=== PATIENT | female | born 1955 | race Caucasian/White ===

== ENCOUNTER 2018-07-01 03:32 | Inpatient (IN) ==
[2018-07-01] MEDS ORDERED: Gadolinium Contrast Agent (WT Based) IV PRN (06:48)
[2018-07-01] MEDS ORDERED: Naloxone 0.4 MG/ML INJ IVP PRN (06:55)
[2018-07-01] MEDS ORDERED: Acetaminophen 325 MG TABLET PO PRN (06:55)
--- NOTE | 2018-07-01 07:11 | Internal Med History&Physical ---
Date of Encounter: 07/01/18 Time of Encounter: 06:57 Internal Medicine - H&P: HPI Chief complaint: Lower extremity numbness/weakness History of present illness: Ms. Buchanan is a 63 year old female with past medical history of hypertension, osteoarthritis, hyperlipidemia, chronic back pain and spinal stenosis who initially presented to [facility] due to low back pain and right hip pain. Patient was subsequent to transferred to [place] for further evaluation of lolita ateral lower extremity weakness and numbness. According to the patient she has been having worsening back pain from her baseline over the weekend. She notes increased soreness in her lower extremities around the calves. Patient went to see a paint trimmer pipe bowls on Thursday who she states brushed her off and did not take her seriously. Patient returned home and shortly thereafter states that she could no longer move her legs and had to crawl to the bathroom. It was at this point that her called EMS to bring her in. She denies any loss of bowel or bladder control. While at [facility] patient received 10 mg of dexamethasone and pain management. Patient reports improved strength in her lower extremitiesthereafter. CT scan of the spine was also performed which showed no acute fracture; multilevel degenerative changes in lumbar spine with spinal stenosis and neural foraminal stenosis with the most severe finding at the level of L4-L5. As stated above patient has a history of chronic pain for which she has an established neurosurgeon. Per report, she is not a surgical candidate due to her comorbidities. Per reports patient had a recent MRI last month the results of which we do not have access to. At baseline patient ambulates with a walker. 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) Psychiatric history: anxiety, depression - Past Surgical History Surgical History: Additional surgical history: carpal tunnel sx - Social History Smoking Status: Current every day smoker Packs per day: 0.5 Smokeless Tobacco Status: No Alcohol use: heavy Drug use: marijuana - Family History Mother Adopted: Yes Internal Medicine - H&P: Meds Atorvastatin [Lipitor] 40 mg PO HS 07/01/18 [History] DULoxetine [Cymbalta] 30 mg PO DAILY 07/01/18 [History] Duloxetine HCl [Cymbalta] 60 mg PO DAILY 07/01/18 [History] Gabapentin [Neurontin] 600 mg PO TID 07/01/18 [History] Losartan Potassium [Cozaar] 50 mg PO DAILY 07/01/18 [History] Meloxicam 15 mg PO DAILY 07/01/18 [History] OxyCODONE/APAP 7.5/325 [Percocet 7.5/325 MG] 1 each PO Q8HR PRN 07/01/18 [History] Oxybutynin Chloride [Ditropan Xl] 5 mg PO DAILY 07/01/18 [History] Trazodone HCl 200 mg PO HS 07/01/18 [History] Allergy/AdvReac Type Severity Reaction Status Date / Time atenolol Allergy Cough Verified 07/01/18 06:43 All Systems PM: A 10-system review of systems was performed and is negative for pertinent findings except as documented above in the HPI. - Constitutional Constitutional: no chills, no fever(s), no night sweats - EENT Eyes: no change in vision, no discharge, no pain, no photophobia Ears: no ear discharge, no ear pain, no tinnitus Nose, mouth and throat: no dysphagia, no nasal discharge, no neck pain, no sore throat - Cardiovascular Cardiovascular ROS IM: no chest pain, no diaphoresis, no dyspnea, no lightheadedness, no palpitations, no syncope - Respiratory Respiratory: no cough, no dyspnea, no wheezing, no excessive phlegm production - Gastrointestinal Gastrointestinal: no abdominal pain, no diarrhea, no hematemesis, no hematochezia, no melena, no nausea, no vomiting - Genitourinary Genitourinary: no change in urinary stream, no dysuria, no flank pain, no hematuria - Musculoskeletal Musculoskeletal ROS IM: no numbness, no tingling - Integumentary Integumentary IM: no rash, no unusual bruising - Neurological Neurological ROS: no confusion, no convulsions, no focal weakness, no numbness, no tingling, no tremor(s) - Hematologic/Lymphatic Hematologic/Lymphatic: no easy bruising - Constitutional Vitals: Temp Pulse Resp BP Pulse Ox 99.1 F 61 15 172/74 93 07/01/18 06:42 07/01/18 06:42 07/01/18 06:42 07/01/18 06:42 07/01/18 06:42 Exam: General: Alert and oriented lying in bed in no acute distress Skin:Normal color, no rash, no lesions. HEENT:EOM, pupils equal, round and reactive. Cardiovascular:Normal S1 & S2, no rubs, murmurs or gallops. No JVD. Pulse regular. Lungs:Normal breath sounds, no wheezes or crackles. Abdomen:Soft, non-tender, no rigidity. Extremities:No deformity, no edema or tenderness, no joint swelling or clubbing. Neurological:Normal cognition. Cranial nerves II through XII intact. Muscle strength in the upper extremities 5 out of 5. Muscle strength in lower extremities 4 out of 5 bilaterally. Patient reports diminished sensation to light palpation bilaterally. Pulses:Carotid and radial pulses normal +2. Rest of the physical exam is non contributory Internal Med - H&P Results - Labs CBC & Chem 7: 07/01/18 07:06 07/01/18 07:06 - Assessment and plan (1) Bilateral leg weakness Current Visit: Yes Status: Acute Assessment and plan: Bilateral lower extremity weakness with reported inability to move her legs in the setting of history of spinal stenosis and chronic back pain. CT scan at [facility] shows mild to moderate to severe spinal stenosis involving the lumbar spine. Symptoms seem to have improved after receiving Decadron and pain medication. No evidence of cauda equina syndrome. We will obtain MRI. Neurology consult (2) Spinal stenosis Current Visit: Yes Status: Acute Assessment and plan: History of spinal stenosis. CT scan of the spine at [facility] showed multilevel degenerative changes in the lumbar spine. Mild spinal canal stenosis was seen at a level of L2-L3, moderate at L3-L4, moderate to severe at L4-L5, mild to moderate at L5-S1. Multilevel neural foraminal stenosis greatest in severity on the right at L2-L3 and L1-L2, and bilaterally at L5-S1 with there is some moderate to severe neural foraminal stenosis. Patient had recent MRI of the spine approximately one month ago per medical records. Patient states it was done at [facility]. Unfortunately we do not have access to that information. As noted above, we will obtain MRI for further evaluation. Pain management Qualifiers: Spinal region: lumbar Neurogenic claudication status: without neurogenic claudication Qualified Code(s): M48.061 - Spinal stenosis, lumbar region without neurogenic claudication (3) Hypertension Current Visit: Yes Status: Acute Assessment and plan: Resume home antihypertensives Qualifiers: Hypertension type: unspecified Qualified Code(s): I10 - Essential (primary) hypertension (4) Hyperlipidemia Current Visit: Yes Status: Acute Assessment and plan: Resume home statin Qualifiers: Hyperlipidemia type: unspecified Qualified Code(s): E78.5 - Hyperlipidemia, unspecified (5) DVT prophylaxis Current Visit: Yes Status: Acute - Time Spent With Patient Total time spent is greater than 50% in coordination of care (as documented) at patient's floor/unit and/or counseling patient:
[2018-07-01 07:44] LABS: Hematocrit 38.3 % (35.3-44.9); Hemoglobin 13.3 g/dL (11.5-15.4); Mean Corpuscular HGB Conc 34.7 g/dL (31.6-35.5); Mean Corpuscular Hemoglobin 31.1 pg (28.0-33.3); Mean Corpuscular Volume 89.5 fL (83.0-100.0); Mean Platelet Volume 10.1 fL (9.4-12.4); Platelet Count 258 K/mcL (140-400); Red Blood Count 4.28 M/mcL (3.82-4.97); Red Cell Distribution Width 12.2 % (11.5-14.5)
[2018-07-01 08:02] LABS: Alanine Aminotransferase 13 Units/L (7-52); Albumin 4.4 g/dL (3.5-5.7); Albumin/Globulin Ratio 1.6 (1.1-2.2); Alkaline Phosphatase 60 Units/L (34-104); Aspartate Amino Transferase 16 Units/L (13-39); BUN/Creatinine Ratio 22 (6-26); Bilirubin,Total 0.5 mg/dL (0.3-1.0); Blood Urea Nitrogen 12 mg/dL (8-23); Calcium 9.7 mg/dL (8.6-10.3); Carbon Dioxide 24 mEq/L (23-29); Chloride 105 mEq/L (98-107); Globulin 2.7 g/dL (2.4-3.5); Glucose 137 mg/dL (70-105); Osmolality,Calculated 284 (280-300); Potassium 3.7 mEq/L (3.5-5.1); Sodium 136 mEq/L (136-145); Total Protein 7.1 g/dL (6.4-8.9); eGFR For Non-African Americans > 60 (> 60)
[2018-07-01 08:05] LABS: Phosphorous 3.6 mg/dL (2.7-4.5)
[2018-07-01 08:19] LABS: Thyroid Stimulating Hormone 0.635 mcIU/mL (0.340-5.600)
[2018-07-01] MEDS: traMADol 50 MG TABLET PO PRN (10:23)
--- NOTE | 2018-07-01 10:48 | Neurology - Consult Note ---
<Farshad Owenuma - Last Filed: 07/01/18 10:59> Date of Encounter: 07/01/18 Time of Encounter: 10:43 Assessment and Plan (1) Bilateral leg weakness Current Visit: Yes Status: Acute Neurological exam nonfocal, nonlateralizing except for brisk lower extremity reflexes. ct spine did show signs of canal stenosis (report only available not images) Patient also did not participate with full effort during neurological exam. When testing for plantar reflexes patient quickly withdrew both lower extremities at an alarming speed which differed from her LE strength testing where she could barely raise her legs. There was no evidence of flaccid or spastic paralysis. Lumbar spine and thoracic spine MRI have been ordered by primary team. We will await those results. Patient has been given 10 mg of dexamethasone at [facility]. zanaflex prn for spasticity (2) Spinal stenosis Current Visit: Yes Status: Acute plan as above. Qualifiers: Spinal region: lumbar Neurogenic claudication status: without neurogenic claudication Qualified Code(s): M48.061 - Spinal stenosis, lumbar region wit hout neurogenic claudication History of Present Illness Chief complaint: Lower extremity weakness HPI: Ms. Buchanan is a 63 year old female presented with chief complaint of lower extremity numbness/weakness which patient reported started 2 weeks ago. When asked in detail patient reports she has had soreness in bilateral lower ext remity as well as in her lower back radiating down to her right buttock. She denies any loss of sensation. She does report difficulty walking. She denies slurred speech, upper extremity weakness, facial drooping, changes in vision or hearing, difficulty swallowing. Patient has history of stroke lumbar spinal stenosis diagnosed in 2015 and is followed by a neurosurgeon who has recommended to her conservative treatment. However these symptoms are new for her. Patient was a transfer from [facility] and received 10 mg of dexamethasone. She underwent CT scan of her spine which showed multilevel degenerative changes in the lumbar spine with spinal stenosis and neural foraminal stenosis with the most severe findings at L4, L5. There was no acute fracture. Patient denies any trauma, fall. Before this symptom started patient reports she ambulated independently to me however to the admitting physician Patient reports she walks with a walker. 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) Psychiatric history: anxiety, depression - Past Surgical History Surgical History: Additional surgical history: carpal tunnel sx - Social History Smoking Status: Current every day smoker Packs per day: 0.5 Smokeless Tobacco Status: No Alcohol use: heavy Drug use: marijuana - Family History Mother Adopted: Yes Medications and Allergies Atorvastatin [Lipitor] 40 mg PO HS 07/01/18 [History] DULoxetine [Cymbalta] 30 mg PO DAILY 07/01/18 [History] Duloxetine HCl [Cymbalta] 60 mg PO DAILY 07/01/18 [History] Gabapentin [Neurontin] 600 mg PO TID 07/01/18 [History] Losartan Potassium [Cozaar] 50 mg PO DAILY 07/01/18 [History] Meloxicam 15 mg PO DAILY 07/01/18 [History] OxyCODONE/APAP 7.5/325 [Percocet 7.5/325 MG] 1 each PO Q8HR PRN 07/01/18 [History] Oxybutynin Chloride [Ditropan Xl] 5 mg PO DAILY 07/01/18 [History] Trazodone HCl 200 mg PO HS 07/01/18 [History] Allergy/AdvReac Type Severity Reaction Status Date / Time atenolol Allergy Cough Verified 07/01/18 06:43 All Systems: The remainder of the systems were reviewed and are negative Review of Systems: Constitutional: Denies fever, chills HEENT: Denies headache, trauma, blurry vision, eye discharge, ear pain, ear discharge neck pain, sore throat, rhinorrhea Heart: Denies chest pain palpitations, LE edema Lungs: Denies shortness of breath cough Abdomen: Denies abdominal pain nausea vomiting diarrhea MSK: Denies back pain, falls, joint pain Kidney: Denies dysuria, hematuria Skin: Denies rash, ulcers Neuro: Reports bilateral lower extremity weakness and difficulty ambulating. Psych: denies axniety, depression Physical Examination - Vital Signs Vital Signs: Initial Vital Signs Temp Pulse Resp BP Pulse Ox 99.1 F 61 15 172/74 93 07/01/18 06:42 07/01/18 06:42 07/01/18 06:42 07/01/18 06:42 07/01/18 06:42 - Exam Exam: General: pleasant, without distress HEENT: Head atraumatic, normocephalic, EOMI, PERRL, absent ear discharge or t rauma, Moist Mucous Membranes, uvula midline Neck: nontender to palpation, absent lymphadenopathy, Cardiovascualr: Regular rate and rhythm with no murmur, absent gallops or rubs, absent pedal edema, radial pulses 2 out of 4 Lungs: Clear to auscultation bilaterally, not in respiratory distress Abdomen: Soft nontender, nondistended positive bowel sounds, absent hepatomegaly Skin: warm and dry, absent rash, absent open wounds and nodules MSK: absent clubbing, cyanosis, joints without swelling Psych: Poor insight, calm - Constitutional General appearance: comfortable - Neurologic Sensorimotor examination: intact Motor examination - right side: 4/5: deltoids, biceps, triceps, wrist flexion, wrist extension, hat cutter, hip flexors, tibialis Anterior, quadriceps, toe extension (EHL), plantarflexion Motor examination - left side: 4/5: deltoids, biceps, triceps, wrist flexion, wrist extension, hip flexors, hat cutter, quadriceps, tibialis Anterior, toe extension (EHL), plantarflexion Detailed sensory examination: intact, light touch, pain Reflex and gait examination: other (Gait is not tested as patient is unable to sit up independently.) Reflexes: Biceps: 3+, Triceps: 3+, Brachioradialis: 3+, Patella: 3+, Achilles: 3+ Mental Status Examination: awake, alert, oriented to person, oriented to place, oriented to time, follows commands appropriately, answers questions appropriately, no agnosia, no aphasia, no aproxia Cranial nerve examination: PERRL, EOMI, visual dent intact, sensory to face intact, mastication intact, no facial asymmetry is present, no dysarthria, hearing is intact symmetrically, soft palate elevates bilaterally upon phonation, flexes SCM and trapezius muscles symmetrically with full power, tongue protrudes midline, no atrophy or facial fasiculations present Cerebellar examination: no dysmetria, performs finger to nose and heel to pemberton symmetrically without ataxia, no truncal ataxia, no difficulty with rapid alternating movements Results - Laboratory Findings CBC and BMP: 07/01/18 07:06 07/01/18 07:06 Abnormal lab findings: Abnormal lab results Creatinine 0.55 mg/dL (0.60-1.20) L 07/01/18 07:06 Glucose 137 mg/dL (70-105) H 07/01/18 07:06 Creatine Kinase 340 Units/L (30-223) H 07/01/18 07:06 Consult Discharge Plan - Plan Referrals: Stacie Michaud, HEALTHCARE CORPORATE ACCOUNT DIRECTOR [Primary Care Provider] - <Isabel Robin I - Last Filed: 07/01/18 16:53> Assessment and Plan (1) Bilateral leg weakness Current Visit: Yes Status: Acute Pt was seen and examined, my medical decision was reviewed with the Resident Physician, I agree with the documented findings, disposition and treatment plas as described except to the extent set forth below Patient who has an history of chronic back problem and known spinal stenosis had been following up with pain management and had seen in the spine surgeon as an outpatient was told that she was not a surgical candidate admitted with these of weakness of lower extremity on examination, Alert awake and oriented care nerves are all intact motor examination she did have a decrease strength in lower extremities but there is significant giveaway weakness she is able to move her legs spontaneously as well as to the pain Reflexes are brisk and lower extremities as compared to the upper extremities Considering her overall symptoms suspect that her lower extremity weakness is likely related to her underlying known history of lumbar degenerative changes she is a scheduled for an MRI of the lumbar spine and thoracic spine will follow the results with you Depending on the result of this is a critical stenosis perhaps she may need consult with the spine surgeon Otherwise may give her trial of steroids and at same time continue her on pain medication She may benefit from physical therapy evaluation Isabel Robin MD History of Present Illness HPI: Ms. Buchanan is a 63 year old female All Systems: The remainder of the systems were reviewed and are negative Physical Examination - Vital Signs Vital Signs: Initial Vital Signs Temp Pulse Resp BP Pulse Ox 99.1 F 61 15 172/74 93 07/01/18 06:42 07/01/18 06:42 07/01/18 06:42 07/01/18 06:42 07/01/18 06:42 Results - Laboratory Findings CBC and BMP: 07/01/18 07:06 07/01/18 07:06 Abnormal lab findings: Abnormal lab results Creatinine 0.55 mg/dL (0.60-1.20) L 07/01/18 07:06 Glucose 137 mg/dL (70-105) H 07/01/18 07:06 Creatine Kinase 340 Units/L (30-223) H 07/01/18 07:06
[2018-07-01] MEDS ORDERED: tiZANidine 4 MG TABLET PO PRN (10:59)
[2018-07-01] MEDS: *HR* Heparin 5,000 UNIT/ML VIAL SQ SCH ×2 (16:52→20:55)
--- NOTE | 2018-07-01 16:53 | Event Note ---
Date of Encounter: 07/01/18 Time of Encounter: 10:00 Patient was seen and examined earlier this a.m. by hospitalist-she is currently alert oriented following simple commands. Denies any pain or discomfort at this time. She does complain of lower extremity weakness complaints of lower back pain when elevating right leg. 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 Disc and osteophytes as well as facet and ligamentum flavum hypertrophy contribute to further stenosis of the thecal sac and narrowing of the neural foramina as discussed above. The worst level is L4-5. Thoracic spine IMPRESSION: 1. Unremarkable MRI of the thoracic spine. 2. Degenerative disc disease is noted at C5-C6, and C6-C7, incompletely imaged. There is at least mild-moderate central spinal canal narrowing at C6-C7. Dedicated MRI of the cervical spine could be obtained for further evaluation if clinically indicated. Neurology consultation awaiting further recommendations
[2018-07-01] MEDS: traZODone 50 MG TABLET PO SCH (20:53)
[2018-07-02] MEDS: *HR* Heparin 5,000 UNIT/ML VIAL SQ SCH ×3 (06:54→21:06)
[2018-07-02] MEDS: traMADol 50 MG TABLET PO PRN (09:02)
--- NOTE | 2018-07-02 10:16 | Neurology Progress Note ---
<Farshad Owen - Last Filed: 07/02/18 10:14> Date of Encounter: 07/02/18 Time of Encounter: 10:14 Assessment and Plan (1) Bilateral leg weakness Current Visit: Yes Status: Acute Neurological exam nonfocal, nonlateralizing except for brisk lower extremity reflexes. ct spine did show signs of canal stenosis (report only available not images) MRI lumbar spine shows bony spinal canal is congenitally small, narrowing of the neural foramina worst at L4's-5 Since patient was witnessed to be able to walk independently back into bed after being transferred to the bathroom, she seems to have enough strength in her lower extremities. Patient may follow-up with her neuro surgeon outpatient for further evaluation of her lumbar stenosis. (2) Spinal stenosis Current Visit: Yes Status: Acute Qualifiers: Spinal region: lumbar Neurogenic claudication status: without neurogenic claudication Qualified Code(s): M48.061 - Spinal stenosis, lumbar region without neurogenic claudication (3) Hypertension Current Visit: Yes Status: Acute Qualifiers: Hypertension type: unspecified Qualified Code(s): I10 - Essential (primary) hypertension (4) Hyperlipidemia Current Visit: Yes Status: Acute Qualifiers: Hyperlipidemia type: unspecified Qualified Code(s): E78.5 - Hyperlipidemia, unspecified (5) DVT prophylaxis Current Visit: Yes Status: Acute Subjective Principal diagnosis: LE weakness Interval history: Patient reports she continues to have lower extremity weakness. However nurse practitioner indicates that patient was seen to walk independently back to her bed and after being transferred to the bathroom. She continues to move her extremities very quickly when pain is applied during neurological exam. Objective - Constitutional Vitals: Temp Pulse Resp BP Pulse Ox 98.7 F 77 17 177/79 94 07/02/18 07:29 07/02/18 07:29 07/02/18 07:29 07/02/18 07:29 07/02/18 07:29 - Neurological Exam Sensorimotor examination: Present: intact Motor examination - right side: 4/5: deltoids, biceps, triceps, wrist flexion, wrist extension, cloth finishing range back tender, hip flexors, tibialis Anterior, quadriceps, toe extension (EHL), plantarflexion Motor examination - left side: 4/5: deltoids, biceps, triceps, wrist flexion, wrist extension, hip flexors, cloth finishing range back tender, quadriceps, tibialis Anterior, toe extension (EHL), plantarflexion Sensation intact: Present: intact, light touch, pain Reflex and gait examination: other (Gait is not tested as patient is unable to sit up independently.) Reflexes: Biceps: 2+, Triceps: 2+, Brachioradialis: 2+, Patella: 3+, Achilles: 3+ Mental Status Examination: Present: awake, alert, oriented to person, oriented to place, oriented to time, follows commands appropriately, answers questions appropriately, no agnosia, no aphasia, no aproxia Cranial nerve examination: Present: PERRL, EOMI, visual dent intact, sensory to face intact, mastication intact, no facial asymmetry is present, no dysarthria, hearing is intact symmetrically, soft palate elevates bilaterally upon phonation, flexes SCM and trapezius muscles symmetrically with full power, tongue protrudes midline, no atrophy or facial fasiculations present Cerebellar examination: Present: no dysmetria, performs finger to nose and heel to pemberton symmetrically without ataxia, no truncal ataxia, no difficulty with rapid alternating movements Results - Laboratory Findings CBC and BMP: 07/01/18 07:06 07/01/18 07:06 Abnormal lab findings: Abnormal lab results Creatinine 0.55 mg/dL (0.60-1.20) L 07/01/18 07:06 Glucose 137 mg/dL (70-105) H 07/01/18 07:06 Creatine Kinase 340 Units/L (30-223) H 07/01/18 07:06 Consult Discharge Plan - Plan Additional Instructions: Call [facility] when you get home to have walker and Bedside Commode delivered. The phone number is #[phone]. Referrals: Stacie Michaud CONGRESSIONAL ASSISTANT [Primary Care Provider] - <Yg Glass - Last Filed: 07/02/18 18:31> Time of Encounter: 18:24 Assessment and Plan (1) Bilateral leg weakness Current Visit: Yes Status: Acute Patient's neurologic examination finds a lyman difference in strength of the upper extremities compared to the lower extremities. She also has brisk lower extremity reflexes. The thoracic MRI did not reveal an explanation for this. She also does not have a spinal sensory level. The MRI of the lumbar spine however shows severe lumbar spinal stenosis at the L4-L5 level. I believe this is the reason that is responsible for her weakness of the lower extremities. I will however try to reconcile the hyperrflexia and obtain an MRI of the cervical spine. I did speak to our spine surgeon Dr. Carlos villeda and request that he see the patient tomorrow. I am not convinced of Guillain-Donaldson or transverse myelitis at this time. Subjective Interval history: Chart was reviewed, patient was seen and examined. Case was discussed with Dr. Owen. Patient today continues to have bilateral lower extremity weakness. She states that the weakness (progressing about 2 weeks or so ago. She has a known history of significant lumbar spinal stenosis. She denies bowel incontinence but is having urinary urgency more frequently. She feels that she is about the same now as she was yesterday. Objective - Constitutional Vitals: Temp Pulse Resp BP Pulse Ox 97.9 F 71 17 165/77 96 07/02/18 15:06 07/02/18 15:06 07/02/18 15:06 07/02/18 15:06 07/02/18 15:06 - Neurological Exam Motor examination - right side: 3/5: tibialis Anterior, toe extension (EHL), plantarflexion, 4/5: hip flexors, quadriceps, 5/5: deltoids, biceps, triceps, cloth finishing range back tender Motor examination - left side: 3/5: tibialis Anterior, toe extension (EHL), plantarflexion, 4/5: quadriceps, 5/5: deltoids, biceps, triceps, cloth finishing range back tender Sensation intact: Present: other (No spinal level is present. No sensory gradient is present.) Reflex and gait examination: other Reflexes: Biceps: 2+ (Symmetrically), Triceps: 2+ (Symmetrically), Brachioradialis: 2+ (Symmetrically), Patella: 3+ (Symmetrically), Achilles: 3+ (Symmetrically) Results - Laboratory Findings CBC and BMP: 07/01/18 07:06 07/01/18 07:06 Abnormal lab findings: Abnormal lab results Creatinine 0.55 mg/dL (0.60-1.20) L 07/01/18 07:06 Glucose 137 mg/dL (70-105) H 07/01/18 07:06 Creatine Kinase 340 Units/L (30-223) H 07/01/18 07:06
[2018-07-02] MEDS: *HR* OxyCODONE Immed Rel 5 MG TABLET PO PRN (12:18)
[2018-07-02] MEDS ORDERED: *HR* LORazepam 2 MG/ML VIAL IVP PRN ×3 (17:25)
--- NOTE | 2018-07-02 20:12 | Internal Med Progress Note ---
Hospitalist Progress Note - Encounter Date of Encounter: 07/02/18 Time of Encounter: 11:00 - Subjective Interval History: Patient seen and examined at bedside earlier this morning. I was notified per nursing staff that patient has a history of alcohol use. Patient does admit to daily drinking for the past 40 years. She states she drinks approximately 4-6 beers daily and her last drink occurred on Thursday. Denies any anxiety or tremors at this time. Advised patient we will initiate CIWA monitoring awaiting neurology recommendations. Patient verbalizes understanding of treatment plan - Exam Vitals: Temp Pulse Resp BP Pulse Ox 98.3 F 56 16 199/73 97 07/02/18 19:13 07/02/18 19:13 07/02/18 19:13 07/02/18 19:13 07/02/18 19:13 Exam: General: Alert and oriented lying in bed in no acute distress Skin:Normal color, no rash, no lesions. HEENT:EOM, pupils equal, round and reactive. Cardiovascular:Normal S1 & S2, no rubs, murmurs or gallops. No JVD. Pulse regula r. Lungs:Normal breath sounds, no wheezes or crackles. Abdomen:Soft, non-tender, no rigidity. Extremities:No deformity, no edema or tenderness, no joint swelling or clubbing. Neurological:Normal cognition. Cranial nerves II through XII intact. Muscle strength in the upper extremities 5 out of 5. Muscle strength in lower extremities 4 out of 5 bilaterally. Patient reports diminished sensation to light palpation bilaterally. Pulses:Carotid and radial pulses normal +2. Rest of the physical exam is non contributory - Assessment and Plan (1) Bilateral leg weakness Current Visit: Yes Status: Acute Assessment and Plan: Bilateral lower extremity weakness with reported inability to move her legs in the setting of history of spinal stenosis and chronic back pain. CT scan at [facility] shows mild to moderate to severe spinal stenosis involving the lumbar spine. Symptoms seem to have improved after receiving Decadron and pain medication. No evidence of cauda equina syndrome. We will obtain MRI. Neurology consult 07/02 Patient continues to experience lower extremity weakness 4/5 strength. Nursing staff does report patient having some difficulty ambulating to the bathroom. MRI of lumbar spine does show severe spinal stenosis at L4-L5 level. I did discuss or review this with Dr. Glass. We will obtain MRI of cervical spine. I will consult Dr. Carlos Glass did speak to Dr. Gonzalez concerning this case (2) Spinal stenosis Current Visit: Yes Status: Acute Assessment and Plan: History of spinal stenosis. CT scan of the spine at [facility] showed multilevel deg enerative changes in the lumbar spine. Mild spinal canal stenosis was seen at a level of L2-L3, moderate at L3-L4, moderate to severe at L4-L5, mild to moderate at L5-S1. Multilevel neural foraminal stenosis greatest in severity on the right at L2-L3 and L1-L2, and bilaterally at L5-S1 with there is some moderate to severe neural foraminal stenosis. Patient had recent MRI of the spine approximately one month ago per medical records. Patient states it was done at [place]. Unfortunately we do not have access to that information. As noted above, we will obtain MRI for further evaluation. Pain management 07/02 MRI of lumbar spine does show severe spinal stenosis at L4-L5 level. I did rev iew this with Dr. Glass we did consult Dr. Gonzalez he will see the patient in the a.m. (3) Hypertension Current Visit: Yes Status: Acute Assessment and Plan: Resume home antihypertensives-hydralazine as needed for systolic greater than 180 (4) Hyperlipidemia Current Visit: Yes Status: Acute Assessment and Plan: Resume home statin (5) DVT prophylaxis Current Visit: Yes Status: Acute Assessment and Plan: Heparin subcutaneous (6) Alcohol abuse Current Visit: Yes Status: Acute Assessment and Plan: Patient states that she drinks approximately 4-6 beers daily for the past 40 years. Her last drink was on Thursday. No signs of tremors or withdrawals at this time. Will initiate CIWA- - Time Spent with Patient Total time spent is greater than 50% in coordination of care (as documented) at patient's floor/unit and/or counseling patient: Internal Medicine: Result - Labs CBC & Chem 7: 07/01/18 07:06 07/01/18 07:06 - Impressions Impressions Lumbar Spine MRI 07/01/18 06:48 IMPRESSION: The bony spinal canal overall is congenitally small. Disc and osteophytes as well as facet and ligamentum flavum hypertrophy contribute to further stenosis of the thecal sac and narrowing of the neural foramina as discussed above. The worst level is L4-5. D/ / 07/01/2018 15:28:05 Kasey Thomason MD / tang Interpreting Provider: Kasey Thomason MD Consult Discharge Plan - Plan Additional Instructions: Call [facility] when you get home to have walker and Bedside Commode delivered. The phone number is #[phone]. Referrals: Stacie Michaud, BRADDER [Primary Care Provider] - (2) Spinal stenosis Qualifiers: Spinal region: lumbar Neurogenic claudication status: without neurogenic claudication Qualified Code(s): M48.061 - Spinal stenosis, lumbar region without neurogenic claudication (3) Hypertension Qualifiers: Hypertension type: unspecified Qualified Code(s): I10 - Essential (primary) hypertension (4) Hyperlipidemia Qualifiers: Hyperlipidemia type: unspecified Qualified Code(s): E78.5 - Hyperlipidemia, unspecified
[2018-07-02] MEDS: traZODone 50 MG TABLET PO SCH (21:06)
[2018-07-03 04:11] LABS: Basophils # 0.1 K/mcL (0.0-0.2); Basophils % 0.7 %; Eosinophils # 0.1 K/mcL (0.0-0.6); Eosinophils % 1.1 %; Hematocrit 41.9 % (35.3-44.9); Hemoglobin 14.1 g/dL (11.5-15.4); Immature Granulocytes % 0.3 % (0-4); Lymphocytes # 2.5 K/mcL (0.6-4.6); Lymphocytes % 33.5 %; Mean Corpuscular HGB Conc 33.7 g/dL (31.6-35.5); Mean Corpuscular Hemoglobin 30.2 pg (28.0-33.3); Mean Corpuscular Volume 89.7 fL (83.0-100.0); Mean Platelet Volume 10.3 fL (9.4-12.4); Monocytes # 0.7 K/mcL (0.0-1.3); Monocytes % 8.8 %; Neutrophils # 4.2 K/mcL (1.6-8.9); Platelet Count 283 K/mcL (140-400); Red Blood Count 4.67 M/mcL (3.82-4.97); Red Cell Distribution Width 12.3 % (11.5-14.5); Segmented Neutrophils % 55.6 %
[2018-07-03 04:35] LABS: BUN/Creatinine Ratio 24 (6-26); Blood Urea Nitrogen 13 mg/dL (8-23); Calcium 9.5 mg/dL (8.6-10.3); Carbon Dioxide 24 mEq/L (23-29); Chloride 109 mEq/L (98-107); Glucose 104 mg/dL (70-105); Osmolality,Calculated 294 (280-300); Potassium 3.4 mEq/L (3.5-5.1); Sodium 142 mEq/L (136-145); eGFR For Non-African Americans > 60 (> 60)
[2018-07-03] MEDS: *HR* Heparin 5,000 UNIT/ML VIAL SQ SCH ×3 (04:52→21:31)
[2018-07-03] MEDS: *HR* OxyCODONE Immed Rel 5 MG TABLET PO PRN ×3 (04:52→21:32)
[2018-07-03] MEDS: Vitamin B Complex/Vit C/Vit E 1 EACH TABLET PO SCH (08:06)
[2018-07-03] MEDS: Thiamine (B-1) 100 MG TABLET PO SCH (08:06)
[2018-07-03] MEDS: Folic Acid 1 MG TABLET PO SCH (08:07)
--- NOTE | 2018-07-03 11:15 | Neurology Progress Note ---
Date of Encounter: 07/03/18 Time of Encounter: 11:11 Assessment and Plan (1) Bilateral leg weakness Current Visit: Yes Status: Acute (2) Lumbar spinal stenosis Current Visit: Yes Status: Acute At this time I believe that the lumbar stenosis present at the L4-L5 level is the primary problem resulting in this admission. Spine evaluation is yet pending. I agree with ongoing physical therapy for now. She also has cervical spinal stenosis at at least 2 levels. However this juncture I am not convinced that it is causing significant problems other than the hyperreflexia. The urina ry urgency could possibly be related to her "dropped bladder" resulting in some stress incontinence. I will defer whether or not to start corticosteroids to a spine surgeon. I will continue to follow with her. Case discussed with the hospitalist as well. Qualifiers: Neurogenic claudication status: without neurogenic claudication Qualified Code(s): M48.061 - Spinal stenosis, lumbar region without neurogenic claudication Subjective Principal diagnosis: LE weakness Interval history: Chart was reviewed, the patient was seen and examined. Upon my entering the room the therapist is working with the patient. Clinically she is unchanged from yesterday. I did review the lumbar MRI films and in my opinion reveal severe lumbar spinal stenosis at the L4-L5 level. MRI of the cervical spine is also been completed. Although the study is motion degraded, she does have st enosis at the C5-C6 level. This does explain hyperreflexia. She also has urinary urgency as well. However this may be due to stress incontinence. In any regard my primary concern is the lumbar spinal stenosis. The case was discussed with the hospitalist. The CIWA protocoll has been implemented. At this time she is alert and oriented no hallucinations or tremor. Vital signs have stabilized. Objective - Constitutional Vitals: Temp Pulse Resp BP Pulse Ox 98.3 F 75 16 147/75 97 07/03/18 07:07 07/03/18 07:07 07/03/18 07:07 07/03/18 07:07 07/03/18 08:00 - Neurological Exam Sensorimotor examination: Present: intact Motor examination - right side: 3/5: tibialis Anterior, toe extension (EHL), 4/5: hip flexors, quadriceps, 5/5: deltoids, biceps, triceps, assurance analyst Motor examination - left side: 3/5: tibialis Anterior, toe extension (EHL), plantarflexion, 4/5: wrist flexion, wrist extension, hip flexors, quadriceps, 5/5: deltoids, biceps, triceps, assurance analyst Sensation intact: Present: other (No spinal level is present. No sensory gradient is present.) Reflex and gait examination: other (Deep tendon reflexes are 2+ symmetrically of the upper extremities, 3+ symmetrically at the patellar and Achilles.) Mental Status Examination: Present: awake, alert, oriented to person, oriented to place, oriented to time, follows commands appropriately, answers questions appropriately, no agnosia, no aphasia, no aproxia Cranial nerve examination: Present: PERRL, EOMI, visual dent intact, sensory to face intact, mastication intact, no facial asymmetry is present, no dysarthria, hearing is intact symmetrically, soft palate elevates bilaterally upon phonation, flexes SCM and trapezius muscles symmetrically with full power, tongue protrudes midline, no atrophy or facial fasiculations present Cerebellar examination: Present: no dysmetria, performs finger to nose and heel to pemberton symmetrically without ataxia, no truncal ataxia, no difficulty with rapid alternating movements Results - Laboratory Findings CBC and BMP: 07/03/18 02:40 07/03/18 02:40 Abnormal lab findings: Abnormal lab results Potassium 3.4 mEq/L (3.5-5.1) L 07/03/18 02:40 Chloride 109 mEq/L (98-107) H 07/03/18 02:40 Creatinine 0.55 mg/dL (0.60-1.20) L 07/03/18 02:40 Creatine Kinase 340 Units/L (30-223) H 07/01/18 07:06 Consult Discharge Plan - Plan Additional Instructions: Call [facility] when you get home to have walker and Bedside Commode delivered. The phone number is #[phone]. Referrals: Stacie Michaud CNP [Primary Care Provider] -
--- NOTE | 2018-07-03 19:24 | Internal Med Progress Note ---
Hospitalist Progress Note - Encounter Date of Encounter: 07/03/18 Time of Encounter: 10:00 - Subjective Interval History: Patient seen and examined at bedside earlier this morning. Currently denies any pain or discomfort there is no numbness or tingling at this time. No tremors hallucinations or withdrawal symptoms noted - Exam Vitals: Temp Pulse Resp BP Pulse Ox 98.5 F 68 16 180/84 95 07/03/18 15:28 07/03/18 15:28 07/03/18 15:28 07/03/18 15:28 07/03/18 15:28 Exam: General: Alert and oriented lying in bed in no acute distress Skin:Normal color, no rash, no lesions. HEENT:EOM, pupils equal, round and reactive. Cardiovascular:Normal S1 & S2, no rubs, murmurs or gallops. No JVD. Pulse regular. Lungs:Normal breath sounds, no wheezes or crackles. Abdomen:Soft, non-tender, no rigidity. Extremities:No deformity, no edema or tenderness, no joint swelling or clubbing. Neurological:Normal cognition. Cranial nerves II through XII intact. Muscle strength in the upper extremities 5 out of 5. Muscle strength in lower extremities 4 out of 5 bilaterally. Patient reports diminished sensation to light palpation bilaterally. Pulses:Carotid and radial pulses normal +2. Rest of the physical exam is non contributory - Assessment and Plan (1) Bilateral leg weakness Current Visit: Yes Status: Acute Assessment and Plan: Bilateral lower extremity weakness with reported inability to move her legs in the setting of history of spinal stenosis and chronic back pain. CT scan at [place] shows mild to moderate to severe spinal stenosis involving the lumbar spine. Symptoms seem to have improved after receiving Decadron and pain medication. No evidence of cauda equina syndrome. We will obtain MRI. Neurology consult 07/02 Patient continues to experience lower extremity weakness 4/5 strength. Nursing staff does report patient having some difficulty ambulating to the bathroom. MRI of lumbar spine does show severe spinal stenosis at L4-L5 level. I did discuss or review this with Dr. Glass. We will obtain MRI of cervical spine. I will consult Dr. Carlos Glass did speak to Dr. Gonzalez concerning this case 07/03 Neurology has been consulted and appreciate recommendation-does recommend spine evaluation and Dr. Gonzalez has been consulted awaiting recommendations We will continue with physical therapy at this time (2) Spinal stenosis Current Visit: Yes Status: Acute Assessment and Plan: History of spinal stenosis. CT scan [facility] the spine at [facility] showed multilevel degenerative changes in the lumbar spine. Mild spinal canal stenosis was seen at a level of L2-L3, moderate at L3-L4, moderate to severe at L4-L5, mild to moderate at L5-S1. Multilevel neural foraminal stenosis greatest in severity on the right at L2-L3 and L1-L2, and bilaterally at L5-S1 with there is some moderate to severe neural foraminal stenosis. Patient had recent MRI of the spine approximately one month ago per medical records. Patient states it was done at [place]. Unfortunately we do not have access to that information. As noted above, we will obtain MRI for further evaluation. Pain management 07/02 MRI of lumbar spine does show severe spinal stenosis at L4-L5 level. I did review this with Dr. Glass we did consult Dr. Gonzalez he will see the patient in the a.m. 07/03 MRI of lumbar spine does show severe spinal stenosis at L4-L5 level. Obtained CT of cervical spine which does show spondylitic changes contribute to mild canal stenosis of C5-6 and C6-7. I did speak with Dr. Gonzalez via telephone this afternoon. I did review MRI results as well as update patient current condition. He verbalizes that he will see the patient tomorrow and anticipate possible surgical intervention on Thursday (3) Hypertension Current Visit: Yes Status: Acute Assessment and Plan: Resume home antihypertensives-hydralazine as needed for systolic greater than 180 07/03 We will continue with hydralazine for systolic greater than 180 (4) Hyperlipidemia Current Visit: Yes Status: Acute Assessment and Plan: Resume home statin (5) DVT prophylaxis Current Visit: Yes Status: Acute Assessment and Plan: Heparin subcutaneous (6) Alcohol abuse Current Visit: Yes Status: Acute Assessment and Plan: Patient states that she drinks approximately 4-6 beers daily for the past 40 years. Her last drink was on Thursday. No signs of tremors or withdrawals at this time. Will initiate CIWA- 07/03 No withdrawal symptoms tremors or hallucinations Continue with CIWA - Time Spent with Patient Total time spent is greater than 50% in coordination of care (as documented) at patient's floor/unit and/or counseling patient: Internal Medicine: Result - Labs CBC & Chem 7: 07/03/18 02:40 07/03/18 02:40 Labs: Short CBC 07/03/18 Range/Units 02:40 WBC 7.6 (4.3-11.1) K/mcL Hgb 14.1 (11.5-15.4) g/dL Hct 41.9 (35.3-44.9) % Plt Count 283 (140-400) K/mcL Neutrophils # 4.2 (1.6-8.9) K/mcL BMP 07/03/18 02:40 Sodium 142 Potassium 3.4 L Chloride 109 H Carbon Dioxide 24 BUN 13 Creatinine 0.55 L Glucose 104 Calcium 9.5 - Impressions Impressions Cervical Spine MRI 07/02/18 18:32 IMPRESSION: Spondylotic changes contribute to mild canal stenosis at C5-6 and C6-7. D/ / Yg Mora MD / Yg Mora MD Interpreting Provider: Yg Mora MD Consult Discharge Plan - Plan Additional Instructions: Call [facility] when you get home to have walker and Bedside Commode delivered. The phone number is #[phone]. Referrals: Stacie Michaud, MOLD SHEET CLEANER [Primary Care Provider] - (2) Spinal stenosis Qualifiers: Spinal region: lumbar (3) Hypertension Qualifiers: Hypertension type: unspecified Qualified Code(s): I10 - Essential (primary) hypertension (4) Hyperlipidemia Qualifiers: Hyperlipidemia type: unspecified Qualified Code(s): E78.5 - Hyperlipidemia, unspecified
[2018-07-03 19:39] LABS: Hematocrit 41.5 % (35.3-44.9); Hemoglobin 14.4 g/dL (11.5-15.4); Mean Corpuscular HGB Conc 34.7 g/dL (31.6-35.5); Mean Corpuscular Volume 89.4 fL (83.0-100.0); Platelet Count 282 K/mcL (140-400); Red Blood Count 4.64 M/mcL (3.82-4.97); Red Cell Distribution Width 12.2 % (11.5-14.5)
[2018-07-03 19:42] LABS: BUN/Creatinine Ratio 27 (6-26); Blood Urea Nitrogen 20 mg/dL (8-23); Calcium 9.6 mg/dL (8.6-10.3); Carbon Dioxide 24 mEq/L (23-29); Chloride 106 mEq/L (98-107); Glucose 120 mg/dL (70-105); Osmolality,Calculated 290 (280-300); Potassium 3.7 mEq/L (3.5-5.1); Sodium 138 mEq/L (136-145); eGFR For Non-African Americans > 60 (> 60)
[2018-07-03 19:46] LABS: Prothrombin Time 11.4 Seconds (9.4-12.1)
[2018-07-03 19:49] LABS: Activated Partial Thrombo Time 35.3 Seconds (26.0-36.0)
[2018-07-03] MEDS: traZODone 50 MG TABLET PO SCH (21:32)
--- NOTE | 2018-07-03 23:45 | Event Note ---
Date of Encounter: 07/03/18 Time of Encounter: 23:38 Notified by Audelia in Bed Management that EHR physician had recommended a status change in pts. admission from Observation to now Inpatient. Change made in pts. MAR.
[2018-07-04 03:53] LABS: Basophils # 0.1 K/mcL (0.0-0.2); Basophils % 0.9 %; Eosinophils # 0.1 K/mcL (0.0-0.6); Hematocrit 42.5 % (35.3-44.9); Hemoglobin 14.5 g/dL (11.5-15.4); Immature Granulocytes % 0.1 % (0-4); Lymphocytes # 2.3 K/mcL (0.6-4.6); Lymphocytes % 34.3 %; Mean Corpuscular HGB Conc 34.1 g/dL (31.6-35.5); Mean Corpuscular Hemoglobin 30.9 pg (28.0-33.3); Mean Corpuscular Volume 90.6 fL (83.0-100.0); Mean Platelet Volume 10.3 fL (9.4-12.4); Monocytes # 0.7 K/mcL (0.0-1.3); Monocytes % 9.9 %; Neutrophils # 3.7 K/mcL (1.6-8.9); Platelet Count 280 K/mcL (140-400); Red Blood Count 4.69 M/mcL (3.82-4.97); Red Cell Distribution Width 12.2 % (11.5-14.5); Segmented Neutrophils % 53.8 %
[2018-07-04 04:12] LABS: BUN/Creatinine Ratio 34 (6-26); Blood Urea Nitrogen 23 mg/dL (8-23); Carbon Dioxide 24 mEq/L (23-29); Chloride 105 mEq/L (98-107); Glucose 104 mg/dL (70-105); Osmolality,Calculated 292 (280-300); Potassium 3.5 mEq/L (3.5-5.1); Sodium 139 mEq/L (136-145); eGFR For Non-African Americans > 60 (> 60)
[2018-07-04] MEDS: *HR* Heparin 5,000 UNIT/ML VIAL SQ SCH ×3 (06:03→20:19)
[2018-07-04] MEDS: Folic Acid 1 MG TABLET PO SCH (08:15)
[2018-07-04] MEDS: Thiamine (B-1) 100 MG TABLET PO SCH (08:15)
[2018-07-04] MEDS: Vitamin B Complex/Vit C/Vit E 1 EACH TABLET PO SCH (08:15)
--- NOTE | 2018-07-04 08:58 | Internal Med Progress Note ---
Hospitalist Progress Note - Encounter Date of Encounter: 07/04/18 Time of Encounter: 08:57 - Subjective Interval History: Patient seen and examined at bedside earlier this morning. Currently denies any pain or discomfort there is no numbness or tingling at this time. No tremors hallucinations or withdrawal symptoms noted Patient is to undergo spinal surgery per Dr. Gonzalez -on Thursday07/05/2018. Patient denies any past history of stroke or vascular disease denies any past history of MIs patient states that she did have a cardiac catheterization in 2013 however no stent placement. Preop EKG sinus rhythm no ST-T wave abnormalities. We will obtain cardiac echo since she did have a cardiac cath, awaiting results Chest x-ray with no acute process She does have history of high blood pressure which she takes medication for she also has a history of drinking approximately 4-6 beers a day last drink was on Thursday. Patient has not displayed any withdrawal symptoms during this hospitalization however she has had episodes of elevated blood pressure which has required hydralazine. Patient also a smoker but she does not use any oxygen. Her cardiac risk index indicates patient is a class II risk and has a 0.9% risk of major cardiac event. - Exam Vitals: Temp Pulse Resp BP Pulse Ox 98.1 F 73 16 183/79 96 07/04/18 07:26 07/04/18 07:26 07/04/18 07:26 07/04/18 07:26 07/04/18 08:15 Exam: General: Alert and oriented lying in bed in no acute distress Skin:Normal color, no rash, no lesions. HEENT:EOM, pupils equal, round and reactive. Cardiovascular:Normal S1 & S2, no rubs, murmurs or gallops. No JVD. Pulse regular. Lungs:Normal breath sounds, no wheezes or crackles. Abdomen:Soft, non-tender, no rigidity. Extremities:No deformity, no edema or tenderness, no joint swelling or clubbing. Neurological:Normal cognition. Cranial nerves II through XII intact. Muscle strength in the upper extremities 5 out of 5. Muscle strength in lower extremities 4 out of 5 bilaterally. Patient reports diminished sensation to light palpation bilaterally. Pulses:Carotid and radial pulses normal +2. Rest of the physical exam is non contributory - Assessment and Plan (1) Bilateral leg weakness Current Visit: Yes Status: Acute Assessment and Plan: Bilateral lower extremity weakness with reported inability to move her legs in the setting of history of spinal stenosis and chronic back pain. CT scan at [place] shows mild to moderate to severe spinal stenosis involving the lumbar spine. Symptoms seem to have improved after receiving Decadron and pain medication. No evidence of cauda equina syndrome. We will obtain MRI. Neurology consult 07/02 Patient continues to experience lower extremity weakness 4/5 strength. Nursing staff does report patient having some difficulty ambulating to the bathroom. MRI of lumbar spine does show severe spinal stenosis at L4-L5 level. I did discuss or review this with Dr. Glass. We will obtain MRI of cervical spine. I will consult Dr. Carlos Glass did speak to Dr. Gonzalez concerning this case 07/03 Neurology has been consulted and appreciate recommendation-does recommend spine evaluation and Dr. Gonzalez has been consulted awaiting recommendations We will continue with physical therapy at this time 07/04 Neurology consulted and appreciate recommendations- does recommend spine evaluation - Dr Gonzalez has been consulted awaiting recommendations (2) Spinal stenosis Current Visit: Yes Status: Acute Assessment and Plan: History of spinal stenosis. CT scan of the spine at [facility] showed multilevel degenerative changes in the lumbar spine. Mild spinal canal stenosis was seen at a level of L2-L3, moderate at L3-L4, moderate to severe at L4-L5, mild to moderate at L5-S1. Multilevel neural foraminal stenosis greatest in severity on the right at L2-L3 and L1-L2, and bilaterally at L5-S1 with there is some moderate to severe neural foraminal stenosis. Patient had recent MRI of the spine approximately one month ago per medical records. Patient states it was done at [facility]. Unfortunately we do not have access to that information. As noted above, we will obtain MRI for further evaluation. Pain management 07/02 MRI of lumbar spine does show severe spinal stenosis at L4-L5 level. I did review this with Dr. Glass we did consult Dr. Gonzalez he will see the patient in the a.m. 07/03 MRI of lumbar spine does show severe spinal stenosis at L4-L5 level. Obtained CT of cervical spine which does show spondylitic changes contribute to mild canal stenosis of C5-6 and C6-7. I did speak with Dr. Gonzalez via telephone this afternoon. I did review MRI results as well as update patient current condition. He verbalizes that he will see the patient tomorrow and anticipate possible surgical intervention on Wednesday 07/04 MRI of lumbar spine does show severe spinal stenosis at L4-L5 level. Obtained CT of cervical spine which does show spondylitic changes contribute to mild canal stenosis of C5-6 and C6-7. I did speak with Dr. Gonzalez via telephone this afternoon. I did review MRI results as well as update patient current condition. Will be seen by spine surgeon today (3) Hypertension Current Visit: Yes Status: Acute Assessment and Plan: Resume home antihypertensives-hydralazine as needed for systolic greater than 180 07/03 We will continue with hydralazine for systolic greater than 180 07/04 cont with hydralazine systolic greater than 180 (4) Hyperlipidemia Current Visit: Yes Status: Acute Assessment and Plan: Resume home statin (5) DVT prophylaxis Current Visit: Yes Status: Acute Assessment and Plan: Heparin subcutaneous (6) Alcohol abuse Current Visit: Yes Status: Acute Assessment and Plan: Patient states that she drinks approximately 4-6 beers daily for the past 40 years. Her last drink was on Thursday. No signs of tremors or withdrawals at this time. Will initiate CIWA- 07/03 No withdrawal symptoms tremors or hallucinations Continue with CIWA - Time Spent with Patient Total time spent is greater than 50% in coordination of care (as documented) at patient's floor/unit and/or counseling patient: Internal Medicine: Result - Labs CBC & Chem 7: 07/04/18 02:18 07/04/18 02:18 Labs: Short CBC 07/03/18 07/04/18 Range/Units 19:13 02:18 WBC 7.1 6.8 (4.3-11.1) K/mcL Hgb 14.4 14.5 (11.5-15.4) g/dL Hct 41.5 42.5 (35.3-44.9) % Plt Count 282 280 (140-400) K/mcL Neutrophils # 3.7 (1.6-8.9) K/mcL BMP 07/03/18 07/04/18 19:13 02:18 Sodium 138 139 Potassium 3.7 3.5 Chloride 106 105 Carbon Dioxide 24 24 BUN 20 23 Creatinine 0.75 0.67 Glucose 120 H 104 Calcium 9.6 10.0 - ABG Interpretation ABG results: PT/INR, D-dimer PT 11.4 Seconds (9.4-12.1) 07/03/18 19:13 - Impressions Impressions Chest X-Ray 07/03/18 18:54 IMPRESSION: No acute cardiopulmonary disease. D/ / Mell Howe MD / Mell Howe MD Interpreting Provider: Mell Howe MD Consult Discharge Plan - Plan Additional Instructions: Call [facility] when you get home to have walker and Bedside Commode delivered. The phone number is #[phone]. Referrals: Stacie Michaud, MEDICAL EDUCATION COORDINATOR [Primary Care Provider] - (2) Spinal stenosis Qualifiers: Spinal region: lumbar (3) Hypertension Qualifiers: Hypertension type: unspecified Qualified Code(s): I10 - Essential (primary) hypertension (4) Hyperlipidemia Qualifiers: Hyperlipidemia type: unspecified Qualified Code(s): E78.5 - Hyperlipidemia, unspecified
--- NOTE | 2018-07-04 14:06 | Neurology Progress Note ---
Date of Encounter: 07/04/18 Time of Encounter: 14:04 Assessment and Plan (1) Bilateral leg weakness Current Visit: Yes Status: Acute (2) Lumbar spinal stenosis Current Visit: Yes Status: Acute Patient does confirm long-standing back pain. However she has plus/minus symptoms of claudication. Spinal evaluation yet pending. Consider corticosteroids. Further recommendations pending spine eval. Qualifiers: Neurogenic claudication status: without neurogenic claudication Qualified Code(s): M48.061 - Spinal stenosis, lumbar region without neurogenic claudication Subjective Principal diagnosis: LE weakness Interval history: Chart was reviewed, patient was seen and examined. She states that her feet "feel better" however her leg strength remains unchanged. She denies urinary incontinence. She still has some paresthesias but improved in comparison to when she was first admitted. Denies paresthesias of the perineum. Objective - Constitutional Vitals: Temp Pulse Resp BP Pulse Ox 98.2 F 98 16 161/84 97 07/04/18 11:25 07/04/18 11:25 07/04/18 11:25 07/04/18 11:25 07/04/18 11:25 - Neurological Exam Sensorimotor examination: Present: intact Motor examination - right side: 3/5: hip flexors, tibialis Anterior, quadriceps, toe extension (EHL), plantarflexion, 5/5: deltoids, biceps, triceps, ham clerk Motor examination - left side: 3/5: tibialis Anterior, toe extension (EHL), plantarflexion, 4/5: hip flexors, quadriceps, 5/5: deltoids, biceps, triceps, ham clerk Sensation intact: Present: other (No spinal level is present. No sensory gradient is present.) Reflex and gait examination: other (Deep tendon reflexes are 2+ symmetrically of the upper extremities, 3+ symmetrically at the patellar and Achilles.) Mental Status Examination: Present: awake, alert, oriented to person, oriented to place, oriented to time, follows commands appropriately, answers questions appropriately, no agnosia, no aphasia, no aproxia Cranial nerve examination: Present: PERRL, EOMI, visual dent intact, sensory to face intact, mastication intact, no facial asymmetry is present, no dysarthr ia, hearing is intact symmetrically, soft palate elevates bilaterally upon phonation, flexes SCM and trapezius muscles symmetrically with full power, tongue protrudes midline, no atrophy or facial fasiculations present Cerebellar examination: Present: no dysmetria, performs finger to nose and heel to pemberton symmetrically without ataxia, no truncal ataxia, no difficulty with rapid alternating movements Results - Laboratory Findings CBC and BMP: 07/04/18 02:18 07/04/18 02:18 Abnormal lab findings: Abnormal lab results BUN/Creatinine Ratio 34 (6-26) H 07/04/18 02:18 Creatine Kinase 340 Units/L (30-223) H 07/01/18 07:06 Consult Discharge Plan - Plan Additional Instructions: Call [facility] when you get home to have walker and Bedside Commode delivered. The phone number is #[phone]. Referrals: Stacie Michaud CNP [Primary Care Provider] -
--- NOTE | 2018-07-04 19:11 | Spine Progress Note ---
Date of Encounter: 07/04/18 Time of Encounter: 19:09 Subjective Principal diagnosis: LE weakness, inability to walk, lumbar stenosis, lumbar radiculopathy Interval history: Patient is 63-year-old female who states she has had a fairly rapid progression of weakness in the lower extremities bilaterally. This has led to gait impairment and inability to walk. She says she also has bilateral lower extremity calf pains. She was admitted for definitive management and workup by neurology revealed severe stenosis in the lumbar spine. We are asked to see regarding treatment options. She denies any fevers, chills, bowel bladder symptomatology. On exam she is awake and alert in moderate distress secondary to the lateral lower extremity pain. Her hips move symmetrically. She has good strength in her proximal lower extremity musculature including quadriceps and hamstrings and iliopsoas. However, she has significant weakness in bilateral dorsiflexors, EHLs, and plantar flexors. Her strength in dorsiflexion and EHL is approximately 3 and her plantar flexion strength is 3+. She has no clonus. MRI of the lumbar spine reveals multilevel degenerative changes. There is moderate severe central stenosis at L4-5. There is severe bilateral foraminal stenosis at L4-5 and L5-S1. Impression: 1) severe lumbar stenosis 2) bilateral lower extremity weakness and L4-S1 distribution 3) gait impairment Plan: Her examination correlates quite well to her MRI abnormalities. Due to her risk of neurologic progression or permanent neurologic injury I find it reasonable consider surgery in the form of a laminectomy L4-S1. Risk benefits possible competitions and alternatives were discussed with the patient. The patient understands she must be medically optimized and cleared prior to surgery and is currently awaiting an echo cardiogram. If cleared by the hospitalist service we will proceed with operative intervention as outlined. Objective Vital signs: Vital Signs Temp Pulse Resp BP Pulse Ox 07/04/18 18:38 98.0 F 66 14 143/74 96 07/04/18 15:20 98.4 F 74 16 179/80 94 07/04/18 11:25 98.2 F 98 16 161/84 97 07/04/18 08:15 96 07/04/18 07:26 98.1 F 73 16 183/79 96 07/04/18 02:52 98.3 F 69 16 105/62 95 07/03/18 23:34 97.8 F 69 16 139/76 97 07/03/18 20:10 97.8 F 66 16 170/92 95 Intake and Output 07/04/18 07/04/18 07/04/18 07:59 15:59 23:59 Intake Total 240 / 240 540 / 540 Output Total 200 / 200 Balance 40 / 40 540 / 540 Intake: Oral 240 / 240 540 / 540 Output: Urine 200 / 200 Other: Meal Breakfast Dinner Percent of Meal Consumed 100% 90% Weight 84.7 kg Patient Weight 07/04/18 23:59 Weight 84.7 kg - Labs CBC & BMP: 07/04/18 02:18 07/04/18 02:18 Labs: Abnormal lab results BUN/Creatinine Ratio 34 (6-26) H 07/04/18 02:18 Creatine Kinase 340 Units/L (30-223) H 07/01/18 07:06 Consult Discharge Plan - Plan Additional Instructions: Call [facility] when you get home to have walker and Bedside Commode delivered. The phone number is #[phone]. Referrals: Stacie Michaud TIPPLE MECHANIC [Primary Care Provider] -
[2018-07-04] MEDS: traZODone 50 MG TABLET PO SCH (20:19)
[2018-07-05 03:40] LABS: Basophils # 0.1 K/mcL (0.0-0.2); Basophils % 0.7 %; Eosinophils # 0.1 K/mcL (0.0-0.6); Eosinophils % 1.1 %; Hematocrit 39.3 % (35.3-44.9); Hemoglobin 13.9 g/dL (11.5-15.4); Immature Granulocytes % 0.3 % (0-4); Lymphocytes # 2.3 K/mcL (0.6-4.6); Mean Corpuscular HGB Conc 35.4 g/dL (31.6-35.5); Mean Corpuscular Hemoglobin 31.6 pg (28.0-33.3); Mean Corpuscular Volume 89.3 fL (83.0-100.0); Mean Platelet Volume 10.1 fL (9.4-12.4); Monocytes # 0.8 K/mcL (0.0-1.3); Monocytes % 11.1 %; Neutrophils # 3.9 K/mcL (1.6-8.9); Platelet Count 263 K/mcL (140-400); Red Cell Distribution Width 12.1 % (11.5-14.5); Segmented Neutrophils % 54.8 %
[2018-07-05 03:59] LABS: BUN/Creatinine Ratio 43 (6-26); Blood Urea Nitrogen 25 mg/dL (8-23); Calcium 9.5 mg/dL (8.6-10.3); Carbon Dioxide 23 mEq/L (23-29); Chloride 108 mEq/L (98-107); Glucose 97 mg/dL (70-105); Osmolality,Calculated 292 (280-300); Potassium 3.6 mEq/L (3.5-5.1); Sodium 139 mEq/L (136-145); eGFR For Non-African Americans > 60 (> 60)
[2018-07-05] MEDS: *HR* Heparin 5,000 UNIT/ML VIAL SQ SCH ×2 (05:55→21:18)
--- NOTE | 2018-07-05 08:12 | Neurology Progress Note ---
<Farshad Owen - Last Filed: 07/05/18 08:54> Date of Encounter: 07/05/18 Time of Encounter: 08:12 Assessment and Plan (1) Spinal stenosis Current Visit: Yes Status: Acute Plan for surgery today Patient able to transfer from bed to bedside commode without assistance. Reports improvement with physical therapy plan for PT for discharge Qualifiers: Spinal region: lumbar Neurogenic claudication status: with neurogenic claudication Qualified Code(s): M48.062 - Spinal stenosis, lumbar region with neurogenic claudication (2) Bilateral leg weakness Current Visit: Yes Status: Acute Subjective Principal diagnosis: LE weakness, inability to walk, lumbar stenosis, lumbar radiculopathy Interval history: No acute events overnight. Patient has planned L4-S1 laminectomy today in the afternoon. Objective - Constitutional Vitals: Temp Pulse Resp BP Pulse Ox 98.1 F 64 16 164/82 96 07/05/18 06:42 07/05/18 06:42 07/05/18 06:42 07/05/18 06:42 07/05/18 06:42 - Neurological Exam Sensorimotor examination: Present: intact Motor Examination: Present: other (3/5: hip flexors, tibialis Anterior, quadriceps, toe extension (EHL), plantarflexion, 5/5: deltoids, biceps, triceps, shear operator helper) Motor examination - left side: 3/5: tibialis Anterior, toe extension (EHL), plantarflexion, 4/5: wrist flexion, wrist extension, hip flexors, quadriceps, 5 /5: deltoids, biceps, triceps, shear operator helper Sensation intact: Present: other (No spinal level is present. No sensory gradient is present.) Reflex and gait examination: other (Deep tendon reflexes are 2+ symmetrically of the upper extremities, 3+ symmetrically at the patellar and Achilles.) Mental Status Examination: Present: awake, alert, oriented to person, oriented to place, oriented to time, follows commands appropriately, answers questions appropriately, no agnosia, no aphasia, no aproxia Cranial nerve examination: Present: PERRL, EOMI, visual dent intact, sensory to face intact, mastication intact, no facial asymmetry is present, no dysarthria, hearing is intact symmetrically, soft palate elevates bilaterally upon phonation, flexes SCM and trapezius muscles symmetrically with full power, tongue protrudes midline, no atrophy or facial fasiculations present Cerebellar examination: Present: no dysmetria, performs finger to nose and heel to pemberton symmetrically without ataxia, no truncal ataxia, no difficulty with rapid alternating movements Results - Laboratory Findings CBC and BMP: 07/05/18 02:34 07/05/18 02:34 Abnormal lab findings: Abnormal lab results Chloride 108 mEq/L (98-107) H 07/05/18 02:34 BUN 25 mg/dL (8-23) H 07/05/18 02:34 Creatinine 0.58 mg/dL (0.60-1.20) L 07/05/18 02:34 BUN/Creatinine Ratio 43 (6-26) H 07/05/18 02:34 Creatine Kinase 340 Units/L (30-223) H 07/01/18 07:06 Consult Discharge Plan - Plan Additional Instructions: Call [facility] when you get home to have walker and Bedside Commode delivered. The phone number is #[phone]. Referrals: Stacie Michaud PRODUCTION HONING MACHINE OPERATOR [Primary Care Provider] - <Yg Glass - Last Filed: 07/05/18 16:38> Assessment and Plan (1) Bilateral leg weakness Current Visit: Yes Status: Acute (2) Lumbar spinal stenosis Current Visit: Yes Status: Acute Patient has remained stable since admission. However her legs are weak more so distally. Anticipate lumbar laminectomy today. We will reevaluate tomorrow. Qualifiers: Neurogenic claudication status: without neurogenic claudication Qualified Code(s): M48.061 - Spinal stenosis, lumbar region without neurogenic claudication Subjective Interval history: Chart was reviewed, patient was seen and examined after Dr. Owen. Patient had no changes overnight. Neurologically he remains stable and unchanged. Ant icipate lumbar laminectomy today with Dr. Gonzalez. Objective - Constitutional Vitals: Temp Pulse Resp BP Pulse Ox 98.4 F 63 16 176/73 97 07/05/18 11:44 07/05/18 11:44 07/05/18 11:44 07/05/18 11:44 07/05/18 11:44 - Neurological Exam Motor examination - right side: 3/5: tibialis Anterior, toe extension (EHL), plantarflexion, 4/5: hip flexors, quadriceps, 5/5: deltoids, biceps, triceps, shear operator helper Results - Laboratory Findings CBC and BMP: 07/05/18 02:34 07/05/18 02:34 Abnormal lab findings: Abnormal lab results Chloride 108 mEq/L (98-107) H 07/05/18 02:34 BUN 25 mg/dL (8-23) H 07/05/18 02:34 Creatinine 0.58 mg/dL (0.60-1.20) L 07/05/18 02:34 BUN/Creatinine Ratio 43 (6-26) H 07/05/18 02:34 Creatine Kinase 340 Units/L (30-223) H 07/01/18 07:06
[2018-07-05] MEDS ORDERED: Bacitracin 50,000 UNIT, Polymyxin B Sulfate 500,000 UNIT, Sodium Chloride IRRigation 1,... IR ONE (09:00)
--- NOTE | 2018-07-05 09:22 | Internal Med Progress Note ---
Hospitalist Progress Note - Encounter Date of Encounter: 07/05/18 Time of Encounter: 09:09 - Subjective Interval History: Patient seen and examined at bedside earlier this morning. Currently denies any pain or discomfort there is no numbness or tingling at this time.Cont with CIWA she has not had any withdrawal sx at this time. She has been NPO after midnight and awaiting laminectomy L4-L5 this afternoon Her cardiac risk index indicates a class 2 risk and 0.9% risk of major cardiac event Echo completed which shows EF of 55-60% mild concentric LVH mild left ventricular diastolic dysfunction normal right ventricular structure and function no significant valvular dysfunction No s/sx of ETOH withdrawal. - Exam Vitals: Temp Pulse Resp BP Pulse Ox 98.1 F 64 16 164/82 96 07/05/18 06:42 07/05/18 06:42 07/05/18 06:42 07/05/18 06:42 07/05/18 06:42 Exam: General: Alert and oriented lying in bed in no acute distress Skin:Normal color, no rash, no lesions. HEENT:EOM, pupils equal, round and reactive. Cardiovascular:Normal S1 & S2, no rubs, murmurs or gallops. No JVD. Pulse regular. Lungs:Normal breath sounds, no wheezes or crackles. Abdomen:Soft, non-tender, no rigidity. Extremities:No deformity, no edema or tenderness, no joint swelling or clubbing. Neurological:Normal cognition. Cranial nerves II through XII intact. Muscle strength in the upper extremities 5 out of 5. Muscle strength in lower extremities 4 out of 5 bilaterally. Patient reports diminished sensation to light palpation bilaterally. Pulses:Carotid and radial pulses normal +2. Rest of the physical exam is non contributory - Assessment and Plan (1) Bilateral leg weakness Current Visit: Yes Status: Acute Assessment and Plan: Bilateral lower extremity weakness with reported inability to move her legs in the setting of history of spinal stenosis and chronic back pain. CT scan at [place] shows mild to moderate to severe spinal stenosis involving the lumbar spine. Symptoms seem to have improved after receiving Decadron and pain medication. No evidence of cauda equina syndrome. We will obtain MRI. Neurology consult 07/02 Patient continues to experience lower extremity weakness 4/5 strength. Nursing staff does report patient having some difficulty ambulating to the bathroom. MRI of lumbar spine does show severe spinal stenosis at L4-L5 level. I did discuss or review this with Dr. Glass. We will obtain MRI of cervical spine. I will consult Dr. Carlos Glass did speak to Dr. Gonzalez concerning this case 07/03 Neurology has been consulted and appreciate recommendation-does recommend spine evaluation and Dr. Gonzalez has been consulted awaiting recommendations We will continue with physical therapy at this time 07/04 Neurology consulted and appreciate recommendations- does recommend spine evaluation - Dr Gonzalez has been consulted awaiting recommendations 07/05 Plan for surgery today laminectomy L4-S1 per ortho dt lumbar stenosis cont with PT/OT recommending SNF at discharge (2) Spinal stenosis Current Visit: Yes Status: Acute Assessment and Plan: History of spinal stenosis. CT scan of the [facility] at [facility] showed multilevel degenerative changes in the lumbar spine. Mild spinal canal stenosis was seen at a level of L2-L3, moderate at L3-L4, moderate to severe at L4-L5, mild to moderate at L5-S1. Multilevel neural foraminal stenosis greatest in severity on the right at L2-L3 and L1-L2, and bilaterally at L5-S1 with there is some moderate to severe neural foraminal stenosis. Patient had recent MRI of the spine approximately one month ago per medical records. Patient states it was done at [place]. Unfortunately we do not have access to that information. As noted above, we will obtain MRI for further evaluation. Pain management 07/02 MRI of lumbar spine does show severe spinal stenosis at L4-L5 level. I did review this with Dr. Glass we did consult Dr. Gonzalez he will see the patient in the a.m. 07/03 MRI of lumbar spine does show severe spinal stenosis at L4-L5 level. Obtained CT of cervical spine which does show spondylitic changes contribute to mild canal stenosis of C5-6 and C6-7. I did speak with Dr. Gonzalez via telephone this afternoon. I did review MRI results as well as update patient current condition. He verbalizes that he will see the patient tomorrow and anticipate possible surgical intervention on Wednesday 07/04 MRI of lumbar spine does show severe spinal stenosis at L4-L5 level. Obtained CT of cervical spine which does show spondylitic changes contribute to mild canal stenosis of C5-6 and C6-7. I did speak with Dr. Gonzalez via telephone this afternoon. I did review MRI results as well as update patient current condition. Will be seen by spine surgeon today 07/05 Plan for surgery today laminectomy L4-S1 per ortho dt lumbar stenosis cont with PT/OT recommending SNF at discharge (3) Alcohol abuse Current Visit: Yes Status: Acute Assessment and Plan: Patient states that she drinks approximately 4-6 beers daily for the past 40 years. Her last drink was on Thursday. No signs of tremors or withdrawals at this time. Will initiate CIWA- 07/03 No withdrawal symptoms tremors or hallucinations Continue with CIWA 07/05 cont with CIWA- No s/sx of withdrawal at this time monitor BP (4) DVT prophylaxis Current Visit: Yes Status: Acute Assessment and Plan: Heparin subcutaneous 07/05 Holding for impending surgery- resume after surgery -SCD for now (5) Hyperlipidemia Current Visit: Yes Status: Acute Assessment and Plan: Cont statin (6) Hypertension Current Visit: Yes Status: Acute Assessment and Plan: Resume home antihypertensives-hydralazine as needed for systolic greater than 180 07/03 We will continue with hydralazine for systolic greater than 180 07/04 cont with hydralazine systolic greater than 180 07/05 Monitor BP - patient NPO Hydralazine for now - Time Spent with Patient Total time spent is greater than 50% in coordination of care (as documented) at patient's floor/unit and/or counseling patient: Internal Medicine: Result - Labs CBC & Chem 7: 07/05/18 02:34 07/05/18 02:34 Labs: Short CBC 07/05/18 Range/Units 02:34 WBC 7.0 (4.3-11.1) K/mcL Hgb 13.9 (11.5-15.4) g/dL Hct 39.3 (35.3-44.9) % Plt Count 263 (140-400) K/mcL Neutrophils # 3.9 (1.6-8.9) K/mcL BMP 07/05/18 02:34 Sodium 139 Potassium 3.6 Chloride 108 H Carbon Dioxide 23 BUN 25 H Creatinine 0.58 L Glucose 97 Calcium 9.5 - ABG Interpretation ABG results: PT/INR, D-dimer PT 11.4 Seconds (9.4-12.1) 07/03/18 19:13 Consult Discharge Plan - Plan Additional Instructions: Call [facility] when you get home to have walker and Bedsi de Commode delivered. The phone number is #[phone]. Referrals: Stacie Michaud, FINANCIAL SERVICES SPECIALIST [Primary Care Provider] - (2) Spinal stenosis Qualifiers: Spinal region: lumbar Neurogenic claudication status: with neurogenic claudication Qualified Code(s): M48.062 - Spinal stenosis, lumbar region with neurogenic claudication (5) Hyperlipidemia Qualifiers: Hyperlipidemia type: unspecified Qualified Code(s): E78.5 - Hyperlipidemia, unspecified (6) Hypertension Qualifiers: Hypertension type: unspecified Qualified Code(s): I10 - Essential (primary) hypertension
[2018-07-05] MEDS ORDERED: *HR* Propofol 200 MG/20 ML VIAL IVP ONE (13:22)
[2018-07-05] MEDS ORDERED: *HR* FentaNYL (PF) 100 MCG/2 ML VIAL ONE (13:22)
[2018-07-05] MEDS ORDERED: *HR* Midazolam HCl 2 MG/2 ML VIAL ONE ×2 (13:22→15:46)
[2018-07-05] MEDS ORDERED: Lidocaine -MPF 2% 2 ML VIAL ONE (13:23)
[2018-07-05] MEDS ORDERED: Ondansetron 4 MG/2 ML VIAL ONE (13:23)
[2018-07-05] MEDS ORDERED: Lidocaine -MPF 4% 5 ML AMPUL ONE (13:23)
[2018-07-05] MEDS ORDERED: *HR* Rocuronium Bromide 50 MG/5 ML VIAL ONE (13:23)
[2018-07-05] MEDS ORDERED: *HR* Succinylcholine 200 MG/10 ML VIAL IVP ONE (13:23)
--- NOTE | 2018-07-05 13:38 | Anesthesia Evaluation PreOp ---
Date of Encounter: 07/05/18 Time of Encounter: 13:34 - Past History Planned Operation: Lami L4-S1 Cardiac History: HTN, Hyperlipidemia, Other (CAD) Pulmonary History: Smoker CORE LOADER History: Other (anxiety/depression, hx Cole's Palsy) Anesthesia History: No Prior Anesthetic Complications, Past Anesthesia (C/S, CTR) Alcohol Use: heavy Drug use: marijuana Medications and Allergies Atorvastatin [Lipitor] 40 mg PO HS 07/01/18 [History] DULoxetine [Cymbalta] 30 mg PO DAILY 07/01/18 [History] Duloxetine HCl [Cymbalta] 60 mg PO DAILY 07/01/18 [History] Gabapentin [Neurontin] 600 mg PO TID 07/01/18 [History] Losartan Potassium [Cozaar] 50 mg PO DAILY 07/01/18 [History] Meloxicam 15 mg PO DAILY 07/01/18 [History] OxyCODONE/APAP 7.5/325 [Percocet 7.5/325 MG] 1 each PO Q8HR PRN 07/01/18 [History] Oxybutynin Chloride [Ditropan Xl] 5 mg PO DAILY 07/01/18 [History] Trazodone HCl 200 mg PO HS 07/01/18 [History] Allergy/AdvReac Type Severity Reaction Status Date / Time atenolol Allergy Cough Verified 07/01/18 06:43 - Meds/Allergy Pre-op Review Medications Reviewed: Yes Allergies Reviewed: Yes Beta Blockers on Current Med List: No Anesthesia Results - Labs 07/05/18 02:34 07/05/18 02:34 - Imaging Additional studies: Echo: EF 55-60%, normal wall motions Anesthesia Exam Selected Entries 07/05/18 11:44 Temperature 98.4 F Pulse Rate 63 Respiratory Rate 16 Blood Pressure 176/73 O2 Sat by Pulse Oximetry 97 Weight: 86kg BMI 31 NPO (# of Hours): 8 - HEENT Pupil (Motor): EOMI Mallampati: III Teeth: Normal Oral Opening: Less than or equal to 3 - CORE LOADER LOC: Oriented CORE LOADER Motor: Normal RUE, Normal RLE, Normal LLE, Normal Face, Deficit LUE (mild weakness) CORE LOADER Sensory: Normal: RUE, LUE, RLE, LLE, Face - Cardiac Rhythm: Regular Murmur: None - Pulmonary Breath Sounds: bilateral Clear Respiratory Effort: Symmetrical Anesthesia Assess/Plan ASA Score: 3 (HTN, CAD, ETOH use) Modified Jerrod Scale for Level of Consciousness: Cooperative, oriented, and tranquil Anesthetic Plan: General Monitoring Plan: Standard Monitors Recovery Plan: PACU (agrees to GA)
[2018-07-05] MEDS ORDERED: *HR* HYDROmorphone (PF) 1 MG/ML SYRINGE ONE (14:05)
[2018-07-05] MEDS ORDERED: EPHEDrine 50 MG/ML VIAL ONE (14:43)
[2018-07-05] MEDS ORDERED: *HR* PHENYLEPHRINE 1,000 MCG/10 ML SYRINGE IVP ONE ×3 (14:43→15:44)
[2018-07-05] MEDS ORDERED: *HR* OxyCODONE Immed Rel 5 MG TABLET PO PRN (14:57)
[2018-07-05] MEDS ORDERED: *HR* Labetalol 20 MG/4 ML SYRINGE IVP PRN (14:57)
[2018-07-05] MEDS ORDERED: Ondansetron 4 MG/2 ML VIAL IVP ONE (14:57)
[2018-07-05] MEDS ORDERED: Neostigmine Methylsulfate 3 MG/3 ML SYRINGE ONE (15:04)
--- NOTE | 2018-07-05 16:16 | Orthopedic Operative Note ---
Date of procedure: 07/05/18 Pre-op diagnosis: Lumbar stenosis, lumbar radiculopathy, leg weakness Post-op diagnosis: same Operation/Findings: Laminectomy L4-S1: The patient was brought to the operative theater where she underwent general endotracheal anesthesia. She was given antibiotics prior to the start of the procedure. Compression boots and stockings were used for deep vein thrombosis prophylaxis. The patient was placed prone on a Oscar table. The back was prepped and draped in the usual sterile fashion. An incision was marked and centered over the L4-S1 interspaces in the midline. We used Bovie cautery to make an incision and then this incision was deepened through the lumbar fascia. Bovie cautery and Rizvi elevators were used to reflect the paraspinal musculature to the lateral extent of the L4-5 and L5-S1 facet joints bilaterally. Vonnie clamps were placed over the spinous processes of L4 and L5 and an intraoperative lateral fluorograph was obtained. A discusssion was held between the radiologist and surgeon who both confirmed we were at the correct operative level. We then removed the supraspinous and interspinous ligaments between L5 and S1 and subsequently removed the ligamentum flavum from its origin on the distal undersurface of the L5 lamina. The ligamentum flavum was noted to be quite hypertrophied as well as the facets were hypertrophied. This required performing a laminectomy of L5 with partial medial facetectomies including undercutting of the L5-S1 facets to decompress the lateral recesses. We moved proximally to the L4-5 level and again removed the interspinous and supraspinous ligaments, hypertrophied ligamentum flavum, undercut the L4-5 facets, and did partial medial facetectomies. In addition, we did a partial L4 laminectomy. We documented the extent of the decompression using 2 curved ball-tipped probes and a lateral fluorograph. After the decompression was complete we checked the foramen and the traversing nerve roots at L4-5 and L5-S1 and they were found to be free and patent. We copiously irrigated the wound and then closed the wound in layers with 1 Vicryl for the fascia, 2-0 Vicryl for the subcutaneous tissue, and Dermabond was used for skin closure. Sterile dressings were placed over the wound, the patient was turned supine in a hospital bed, and was extubated in the operative theater. All sponge needles and instrument counts were correct at the end of the procedure. The patient tolerated the procedure well without complications. Anesthesia: GETA Surgeon: German Gonzalez Jr Was there an embalmer assistant present: No Estimated blood loss (cc): 40 Specimen: None Condition: stable Disposition: PACU
[2018-07-05] MEDS: *HR* HYDROmorphone (PF) 1 MG/ML SYRINGE IVP PRN ×2 (16:30→16:39)
--- NOTE | 2018-07-05 17:06 | Anesthesia Evaluation Post Op ---
Date of Encounter: 07/05/18 Time of Encounter: 17:04 - Vital Signs Vital Signs: Vital Signs/O2 Sat/Glucose, Most Current Temp Pulse Resp BP Pulse Ox 07/05/18 16:53 97.9 F 82 12 119/55 96 07/05/18 16:43 84 12 122/62 94 07/05/18 16:33 85 12 141/68 92 07/05/18 16:23 97.8 F 82 16 119/67 98 - Lungs Lungs: Clear Ascult./Percussion - Airway Airway: Non-obstructed - Cardiovascular Regular Rate, Baseline Rhythm - Mental Status Mental Status: Alert & Oriented, Answers Appropriately - Pain Pain Scale: 7 - Nausea Vomiting Nausea Vomiting: Not Present - Hydration Hydration: Ice chips - Discharge PostOp Status: Transfer Patient to floor (Tolerated general anesthesia well.)
[2018-07-05] MEDS ORDERED: Naloxone 0.4 MG/ML INJ IVP PRN (17:33)
[2018-07-05] MEDS ORDERED: *HR* HYDROcodone/Acet 5/325 mg TABLET PO PRN (17:33)
[2018-07-05] MEDS ORDERED: Ondansetron 4 MG/2 ML VIAL IVP PRN (17:33)
[2018-07-05] MEDS ORDERED: Acetaminophen 325 MG TABLET PO PRN (17:33)
[2018-07-05] MEDS: *HR* OxyCODONE Immed Rel 5 MG TABLET PO PRN (17:50)
[2018-07-05] MEDS ORDERED: *HR* LORazepam 2 MG/ML VIAL IVP PRN ×3 (18:00)
[2018-07-05] MEDS ORDERED: tiZANidine 4 MG TABLET PO PRN (18:05)
[2018-07-05] MEDS: traZODone 50 MG TABLET PO SCH (21:18)
[2018-07-06] MEDS: *HR* Heparin 5,000 UNIT/ML VIAL SQ SCH ×3 (04:32→21:21)
[2018-07-06] MEDS: *HR* OxyCODONE Immed Rel 5 MG TABLET PO PRN ×4 (04:32→21:20)
--- NOTE | 2018-07-06 08:13 | Neurology Progress Note ---
Date of Encounter: 07/06/18 Time of Encounter: 08:10 Assessment and Plan (1) Lumbar spinal stenosis Current Visit: Yes Status: Acute Lumbar laminectomy completed successfully. Case discussed with Dr. Gonzalez who was reassuring about the procedure and proposed benefit. Some postoperative pain and weakness are not atypical. Patient may need a left ankle-foot orthotic and some outpatient physical therapy. I will follow peripherally. Qualifiers: Neurogenic claudication status: without neurogenic claudication Qualified Code(s): M48.061 - Spinal stenosis, lumbar region without neurogenic qing ication Subjective Principal diagnosis: LE weakness, inability to walk, lumbar stenosis, lumbar radiculopathy Interval history: Chart was reviewed, patient was seen and examined. Lumbar laminectomy was completed yesterday without complication. The patient this morning does have some postoperative back pain. Also has some weakness in dorsiflexion of the left foot. His additional weakness of eversion, inversion, and plantar flexion of the left foot. She has improvement however in dorsiflexion, plantar flexion ,flexion toe extension on the right. Objective - Constitutional Vitals: Temp Pulse Resp BP Pulse Ox 98.3 F 73 14 129/73 95 07/06/18 07:08 07/06/18 07:08 07/06/18 07:08 07/06/18 07:08 07/06/18 07:08 - Neurological Exam Sensorimotor examination: Present: intact Motor Examination: Present: other (3/5: hip flexors, tibialis Anterior, quadriceps, toe extension (EHL), plantarflexion, 5/5: deltoids, biceps, triceps, real estate clerk) Motor examination - right side: 3/5: tibialis Anterior, toe extension (EHL), plantarflexion, 4/5: hip flexors, quadriceps, 5/5: deltoids, biceps, triceps, real estate clerk Motor examination - left side: 2/5: tibialis Anterior, toe extension (EHL), 3/5: plantarflexion, 4/5: wrist flexion, wrist extension, hip flexors, quadriceps, 5/5: deltoids, biceps, triceps, real estate clerk Sensation intact: Present: other (No spinal level is present. No sensory gradient is present.) Reflex and gait examination: other (Deep tendon reflexes are 2+ symmetrically of the upper extremities, 3+ symmetrically at the patellar and Achilles.) Mental Status Examination: Present: awake, alert, oriented to person, oriented to place, oriented to time, follows commands appropriately, answers questions appropriately, no agnosia, no aphasia, no aproxia Cranial nerve examination: Present: PERRL, EOMI, visual dent intact, sensory to face intact, mastication intact, no facial asymmetry is present, no dysarthria, hearing is intact symmetrically, soft palate elevates bilaterally upon phonation, flexes SCM and trapezius muscles symmetrically with full power, tongue protrudes midline, no atrophy or facial fasiculations present Cerebellar examination: Present: no dysmetria, performs finger to nose and heel to pemberton symmetrically without ataxia, no truncal ataxia, no difficulty with rapid alternating movements Results - Laboratory Findings CBC and BMP: 07/05/18 02:34 07/05/18 02:34 Abnormal lab findings: Abnormal lab results Chloride 108 mEq/L (98-107) H 07/05/18 02:34 BUN 25 mg/dL (8-23) H 07/05/18 02:34 Creatinine 0.58 mg/dL (0.60-1.20) L 07/05/18 02:34 BUN/Creatinine Ratio 43 (6-26) H 07/05/18 02:34 Creatine Kinase 340 Units/L (30-223) H 07/01/18 07:06 Consult Discharge Plan - Plan Additional Instructions: Call [facility] when you get home to have walker and Bedside Commode delivered. The phone number is #[phone]. Referrals: Stacie Michaud CLEAT MAKER [Primary Care Provider] -
[2018-07-06] MEDS: Thiamine (B-1) 100 MG TABLET PO SCH (08:31)
[2018-07-06] MEDS: Vitamin B Complex/Vit C/Vit E 1 EACH TABLET PO SCH (08:31)
[2018-07-06] MEDS: Folic Acid 1 MG TABLET PO SCH (08:32)
--- NOTE | 2018-07-06 10:10 | Spine Progress Note ---
Date of Encounter: 07/06/18 Time of Encounter: 10:08 Subjective Principal diagnosis: LE weakness, inability to walk, lumbar stenosis, lumbar radiculopathy Interval history: The patient is without complaints. Improvement in numbness in radicular symptoms and lower extremities. Still has some left foot weakness. Afebrile vital signs are stable. Dressing is clean dry and intact. Right-sided dorsiflexion and plantar flexion strength has improved to 4 on a motor scale. Still has persistent left foot drop. Assessment :stable. Plan mobilize ,continue analgesics, discharge planning. Suggest AFO left foot. Objective Vital signs: Vital Signs Temp Pulse Resp BP Pulse Ox 07/06/18 07:08 98.3 F 73 14 129/73 95 07/06/18 04:28 98.1 F 64 18 157/73 97 07/05/18 23:13 98.7 F 73 18 116/71 96 07/05/18 19:19 99.0 F 96 14 147/72 95 07/05/18 18:15 84 146/64 95 07/05/18 17:47 86 139/71 97 07/05/18 17:17 98.0 F 82 14 139/71 98 07/05/18 17:03 97.9 F 84 12 126/81 96 07/05/18 16:53 97.9 F 82 12 119/55 96 07/05/18 16:43 84 12 122/62 94 07/05/18 16:33 85 12 141/68 92 07/05/18 16:23 97.8 F 82 16 119/67 98 07/05/18 11:44 98.4 F 63 16 176/73 97 Intake and Output 07/05/18 07/06/18 07/06/18 23:59 07:59 15:59 Intake Total 250 / 250 580 / 580 Output Total 340 / 340 350 / 350 200 / 200 Balance -90 / -90 230 / 230 -200 / -200 Intake: IV Fluids 100 / 100 Ancef 2,000 MG In 0.9 % Sodium 100 / 100 Chloride 100 ML @ 200 mls/hr IVPB Q8HR [facility] Rx#:[id number] Oral 250 / 250 480 / 480 Output: Urine 300 / 300 350 / 350 200 / 200 Estimated Blood Loss 40 / 40 - Labs CBC & BMP: 07/05/18 02:34 07/05/18 02:34 Labs: Abnormal lab results Chloride 108 mEq/L (98-107) H 07/05/18 02:34 BUN 25 mg/dL (8-23) H 07/05/18 02:34 Creatinine 0.58 mg/dL (0.60-1.20) L 07/05/18 02:34 BUN/Creatinine Ratio 43 (6-26) H 07/05/18 02:34 Creatine Kinase 340 Units/L (30-223) H 07/01/18 07:06 Consult Discharge Plan - Plan Additional Instructions: Call [facility] when you get home to have walker and Bedside Commode delivered. The phone number is #[phone]. Referrals: Stacie Michaud CNP [Primary Care Provider] -
--- NOTE | 2018-07-06 16:40 | Internal Med Progress Note ---
Hospitalist Progress Note - Encounter Date of Encounter: 07/06/18 Time of Encounter: 16:37 - Subjective Interval History: Pt seen and examined in the room. She reported improved pain on the right lower extremity. otherwise she is doing good. - Exam Vitals: Temp Pulse Resp BP Pulse Ox 98.6 F 74 16 130/65 94 07/06/18 15:38 07/06/18 15:38 07/06/18 15:38 07/06/18 13:30 07/06/18 15:38 Exam: PHYSICAL EXAMINATION: GENERAL APPEARANCE: The patient is alert, oriented and in no acute distress. HEENT: Head is normocephalic. The sinuses are nontender. Pupils are equal and reactive. The nares are patent. Oropharynx clear without lesions. NECK: Supple without lymphadenopathy. HEART: Regular rate and rhythm. LUNGS: No crackles or wheezes are heard. ABDOMEN: Soft, nontender, nondistended with good bowel sounds heard. Inguinal area is normal. EXTREMITIES: Without cyanosis, clubbing or edema. NEUROLOGICAL: Gross nonfocal. SKIN: Warm and dry without any rash. - Assessment and Plan (1) Bilateral leg weakness Current Visit: Yes Status: Acute Assessment and Plan: Bilateral lower extremity weakness with reported inability to move her legs in the setting of history of spinal stenosis and chronic back pain. CT scan at [place] shows mild to moderate to severe spinal stenosis involving the lumbar spine. Symptoms seem to have improved after receiving Decadron and pain medication. No evidence of cauda equina syndrome. We will obtain MRI. Neurology consult 07/02 Patient continues to experience lower extremity weakness 4/5 strength. Nursing staff does report patient having some difficulty ambulating to the bathroom. MRI of lumbar spine does show severe spinal stenosis at L4-L5 level. I did discuss or review this with Dr. Glass. We will obtain MRI of cervical spine. I will consult Dr. Carlos Glass did speak to Dr. Gonzalez concerning this case 07/03 Neurology has been consulted and appreciate recommendation-does recommend spine evaluation and Dr. Gonzalez has been consulted awaiting recommendations We will continue with physical therapy at this time 07/04 Neurology consulted and appreciate recommendations- does recommend spine evaluation - Dr Gonzalez has been consulted awaiting recommendations 07/05 Plan for surgery today laminectomy L4-S1 per ortho dt lumbar stenosis cont with PT/OT recommending SNF at discharge. 07/06 L4-S1 laminectomy, POD #2. Doing well, had improved pain. awaiting placement. (2) Spinal stenosis Current Visit: Yes Status: Acute Assessment and Plan: History of spinal stenosis. CT scan of the spine at [facility] showed multilevel degenerative changes in the lumbar spine. Mild spinal canal stenosis was seen at a level of L2-L3, moderate at L3-L4, moderate to severe at L4-L5, mild to moderate at L5-S1. Multilevel neural foraminal stenosis greatest in severity on the right at L2-L3 and L1-L2, and bilaterally at L5-S1 with there is some moderate to severe neural foraminal stenosis. Patient had recent MRI of the spine approximately one month ago per medical records. Patient states it was done at [place]. Unfortunately we do not have access to that information. As noted above, we will obtain MRI for further evaluation. Pain management 07/02 MRI of lumbar spine does show severe spinal stenosis at L4-L5 level. I did review this with Dr. Glass we did consult Dr. Gonzalez he will see the patient in the a.m. 07/03 MRI of lumbar spine does show severe spinal stenosis at L4-L5 level. Obtained CT of cervical spine which does show spondylitic changes contribute to mild canal stenosis of C5-6 and C6-7. I did speak with Dr. Gonzalez via telephone this afternoon. I did review MRI results as well as update patient current condition. He verbalizes that he will see the patient tomorrow and anticipate possible surgical intervention on Wednesday 07/04 MRI of lumbar spine does show severe spinal stenosis at L4-L5 level. Obtained CT of cervical spine which does show spondylitic changes contribute to mild canal stenosis of C5-6 and C6-7. I did speak with Dr. Gonzalez via telephone this afternoon. I did review MRI results as well as update patient current condition. Will be seen by spine surgeon today 07/05 Plan for surgery today laminectomy L4-S1 per ortho dt lumbar stenosis cont with PT/OT recommending SNF at discharge. 07/06 POD #2. pain improved. SW working on placement. (3) Hypertension Current Visit: Yes Status: Acute Assessment and Plan: Resume home antihypertensives-hydralazine as needed for systolic greater than 180 07/03 We will continue with hydralazine for systolic greater than 180 07/04 cont with hydralazine systolic greater than 180 07/05 Monitor BP - patient NPO Hydralazine for now (4) Hyperlipidemia Current Visit: Yes Status: Acute Assessment and Plan: Cont statin (5) DVT prophylaxis Current Visit: Yes Status: Acute Assessment and Plan: Heparin subcutaneous 07/05 Holding for impending surgery- resume after surgery -SCD for now (6) Alcohol abuse Current Visit: Yes Status: Acute Assessment and Plan: Patient states that she drinks approximately 4-6 beers daily for the past 40 years. Her last drink was on Thursday. No signs of tremors or withdrawals at this time. Will initiate CIWA- 07/03 No withdrawal symptoms tremors or hallucinations Continue with CIWA 07/05 cont with CIWA- No s/sx of withdrawal at this time monitor BP 07/06. no withdrawal symptoms. - Time Spent with Patient Total time spent is greater than 50% in coordination of care (as documented) at patient's floor/unit and/or counseling patient: Greater than 35 minutes Plan of Care Discussed with: patient Internal Medicine: Result - Labs CBC & Chem 7: 07/05/18 02:34 07/05/18 02:34 - ABG Interpretation ABG results: PT/INR, D-dimer PT 11.4 Seconds (9.4-12.1) 07/03/18 19:13 - Impressions Impressions Fluoroscopy 07/05/18 00:00 IMPRESSION: Intraprocedural fluoroscopic spot images as above. See separate procedure report for more information. D/ / Dylon Laws MD / Dylon Laws MD Interpreting Provider: Dylon Laws MD Lumbar Spine X-Ray 07/05/18 00:00 IMPRESSION: Intraprocedural fluoroscopic spot images as above. See separate procedure report for more information. D/ / Dylon Laws MD / Dylon Laws MD Interpreting Provider: Dylon Laws MD Consult Discharge Plan - Plan Additional Instructions: Call [facility] when you get home to have walker and Bedside Commode delivered. The phone number is #[phone]. Referrals: Michaud,Stacie J, CONSTRUCTION CHECKER [Primary Care Provider] - (2) Spinal stenosis Qualifiers: Spinal region: lumbar Neurogenic claudication status: with neurogenic claudication Qualified Code(s): M48.062 - Spinal stenosis, lumbar region with neurogenic claudication (3) Hypertension Qualifiers: Hypertension type: unspecified Qualified Code(s): I10 - Essential (primary) hypertension (4) Hyperlipidemia Qualifiers: Hyperlipidemia type: unspecified Qualified Code(s): E78.5 - Hyperlipidemia, unspecified
[2018-07-06] MEDS: traZODone 50 MG TABLET PO SCH (21:20)
[2018-07-07] MEDS: *HR* OxyCODONE Immed Rel 5 MG TABLET PO PRN ×2 (06:02→10:40)
[2018-07-07] MEDS: *HR* Heparin 5,000 UNIT/ML VIAL SQ SCH (06:03)
[2018-07-07] MEDS: Vitamin B Complex/Vit C/Vit E 1 EACH TABLET PO SCH (07:14)
[2018-07-07] MEDS: Thiamine (B-1) 100 MG TABLET PO SCH (07:14)
[2018-07-07] MEDS: Folic Acid 1 MG TABLET PO SCH (07:15)
--- NOTE | 2018-07-07 10:39 | Neurology Progress Note ---
<Farshad Owen - Last Filed: 07/07/18 10:42> Date of Encounter: 07/07/18 Time of Encounter: 10:37 Assessment and Plan (1) Spinal stenosis Current Visit: Yes Status: Acute patient has foot drop on the left. Strength improved with bilateral hip flexors, knee for flexion and extension, right plantar flexion and dorsiflexion. Patient is plan for discharge to ECF for PT/OT. Qualifiers: Spinal region: lumbar Neurogenic claudication status: with neurogenic claudication Qualified Code(s): M48.062 - Spinal stenosis, lumbar region with neurogenic claudication Subjective Principal diagnosis: LE weakness, inability to walk, lumbar stenosis, lumbar radiculopathy Interval history: No acute events overnight. Patient reports she is able to stand up without assistance. She is ambulating with her walker. Plan is to d/c to ecf for PT/OT Objective - Constitutional Vitals: Temp Pulse Resp BP Pulse Ox 98.8 F 80 18 116/71 93 07/07/18 06:55 07/07/18 06:55 07/07/18 06:55 07/07/18 06:55 07/07/18 06:55 - Neurological Exam Sensorimotor examination: Present: intact Motor Examination: Present: other (3/5: hip flexors, tibialis Anterior, quadriceps, toe extension (EHL), plantarflexion, 5/5: deltoids, biceps, triceps, woven blind loom tender) Motor examination - right side: 4/5: hip flexors, tibialis Anterior, quadriceps, toe extension (EHL), plantarflexion, 5/5: deltoids, biceps, triceps, wrist flexion, wrist extension, woven blind loom tender Motor examination - left side: 2/5: tibialis Anterior, toe extension (EHL), 3/5: plantarflexion, 4/5: wrist flexion, wrist extension, hip flexors, quadriceps, 5/5: deltoids, biceps, triceps, woven blind loom tender Sensation intact: Present: other (No spinal level is present. No sensory gradient is present.) Reflex and gait examination: foot droop (Deep tendon reflexes are 2+ symmetrically of the upper extremities, 3+ symmetrically at the patellar and Achilles. foot drop on the left) Mental Status Examination: Present: awake, alert, oriented to person, oriented to place, oriented to time, follows commands appropriately, answers questions appropriately, no agnosia, no aphasia, no aproxia Cranial nerve examination: Present: PERRL, EOMI, visual dent intact, sensory to face intact, mastication intact, no facial asymmetry is present, no dysarthria, hearing is intact symmetrically, soft palate elevates bilaterally upon phonation, flexes SCM and trapezius muscles symmetrically with full power, tongue protrudes midline, no atrophy or facial fasiculations present Cerebellar examination: Present: no dysmetria, performs finger to nose and heel to pemberton symmetrically without ataxia, no truncal ataxia, no difficulty with rapid alternating movements Results - Laboratory Findings CBC and BMP: 07/05/18 02:34 07/05/18 02:34 Abnormal lab findings: Abnormal lab results Chloride 108 mEq/L (98-107) H 07/05/18 02:34 BUN 25 mg/dL (8-23) H 07/05/18 02:34 Creatinine 0.58 mg/dL (0.60-1.20) L 07/05/18 02:34 BUN/Creatinine Ratio 43 (6-26) H 07/05/18 02:34 Creatine Kinase 340 Units/L (30-223) H 07/01/18 07:06 Consult Discharge Plan - Plan Additional Instructions: Call [facility] when you get home to have walker and Bedside Commode delivered. The phone number is #[phone]. Discharge Instructions: Lumbar Please call [facility] ([phone]), your Primary Care Physician, or report to the ER if you have any of the following symptoms: Fever greater that 101.5, increased pain/redness/drainage/odor for your incision site or any other concerning symptoms. ACTIVITY * May Shower * No Tub Baths * No lifting greater than 10 pounds * No Smoking * No Swimming * No off Ground Activities (Running, Climbing, Ladders, Horseback Riding) * No Driving * Wear Back Brace when up walking if lumbar fusion done * Incentive Spirometer 10 times an hour MEDICATIONS: Upon discharge resume your home medications. Take all the medications as prescribed. Take a stool softener if taking narcotic pain medications. Stool softeners are only effective if you drink enough fluids. Drink 6-8 glass of water or fluids a day, unless this is not allowed for another health problem. Despite using stool softeners, if you haven't had a bowel movement in 3 days, please switch to a gentle laxative. Gentle laxatives are sold over the counter. You should have a bowel movement within 24 hours, if not call the office. You will be discharged from the hospital with a prescription for pain medication. You are encouraged to decrease the use of narcotic pain medication as tolerated. Should you require a refill, please call the office. It is best to call 48-72 hours in advance of needing a prescription refill so you don't run out of medication. WOUND CARE: Remove Dressing Tomorrow. Leave incision open to air. Pat dry when you get out of the shower. FOLLOW-UP: Please follow up with your surgeon in the orthopedic clinic in 2 weeks from the day of surgery. References: [employer] (www.apta.org) Referrals: Stacie Michaud, DEBUG TECHNICIAN [Primary Care Provider] - Prescriptions: HYDROcodone/Acet 5/325 mg [Gordon 5-325 mg] 1 tab PO Q6HR PRN 4 Days #10 tablet PRN Reason: Moderate Pain <Yg Glass - Last Filed: 07/07/18 15:36> Time of Encounter: 08:00 Assessment and Plan (1) Lumbar spinal stenosis Current Visit: Yes Status: Acute Patient will certainly need inpatient rehabilitation therapy after discharge in order to strengthen the left leg and foot. However it is certainly my opinion that situation would have gotten much worse had she not had the lumbar decompressive surgery. I will reevaluate her your request. May discharge at your discretion. Qualifiers: Neurogenic claudication status: without neurogenic claudication Qualified Code(s): M48.061 - Spinal stenosis, lumbar region without neurogenic claudication Subjective Interval history: I agree with Dr. Oewn's assessment as above. Patient still has some difficulty dorsiflexing the left ankle, however she is able to better dorsiflex the toes on the left foot today. Objective - Constitutional Vitals: Temp Pulse Resp BP Pulse Ox 98.1 F 69 18 118/67 98 07/07/18 14:50 07/07/18 14:50 07/07/18 14:50 07/07/18 14:50 07/07/18 14:50 - Neurological Exam Sensation intact: Present: other Reflex and gait examination: foot droop Results - Laboratory Findings CBC and BMP: 07/05/18 02:34 07/05/18 02:34 Abnormal lab findings: Abnormal lab results Chloride 108 mEq/L (98-107) H 07/05/18 02:34 BUN 25 mg/dL (8-23) H 07/05/18 02:34 Creatinine 0.58 mg/dL (0.60-1.20) L 07/05/18 02:34 BUN/Creatinine Ratio 43 (6-26) H 07/05/18 02:34 Creatine Kinase 340 Units/L (30-223) H 07/01/18 07:06
[2018-07-07 14:51] VITALS: BP 118/67
--- NOTE | 2018-07-07 14:58 | Discharge Summary ---
- NOTES TO OUTPATIENT PROVIDER Notes to Outpatient Provider: f/u with spine surgey on 07/20/2018, appointment already set up. Date of Encounter: 07/07/18 Time of Encounter: 14:52 - Discharge Diagnosis (1) Spinal stenosis Priority: Primary Status: Acute Qualifiers: Spinal region: lumbar Neurogenic claudication status: with neurogenic claudication Qualified Code(s): M48.062 - Spinal stenosis, lumbar region with neurogenic claudication Hospital course: Ms. Buchanan is a 63 year old female with history of spinal stenosis. CT scan of the spine at [facility] showed multilevel degenerative changes in the lumbar spine. Mild spinal canal stenosis was seen at a level of L2-L3, moderate at L3-L4, m oderate to severe at L4-L5, mild to moderate at L5-S1. Multilevel neural foraminal stenosis greatest in severity on the right at L2-L3 and L1-L2, and bilaterally at L5-S1 with there is some moderate to severe neural foraminal stenosis. Patient had recent MRI of the spine approximately one month ago per medical records. Patient states it was done at [place]. Unfortunately we do not have access to that information. 07/02 MRI of lumbar spine showed severe spinal stenosis at L4-L5 level. Spine surgery Dr. Gonzalez consulted. 07/[address] of cervical spine which does show spondylitic changes contribute to mild canal stenosis of C5-6 and C6-7. 07/04 Seen by spine surgeon, planned surgery on Thursday 07/05 Had laminectomy L4-S1. cont with PT/OT recommending SNF at discharge. 07/06 POD #2. pain improved. SW working on placement. 07/07 DC to rehab. f/u with spine surgery on 07/20/2018 Discharge discussed with: patient Time spent discussing smoking cessation with patient: more than 10 minutes - Time Spent with Patient Total time spent providing and/or coordinating discharge services: Greater than 30 minutes - Discharge Medications Prescriptions: HYDROcodone/Acet 5/325 mg [[place] 5-325 mg] 1 tab PO Q6HR PRN 4 Days #10 tablet PRN Reason: Moderate Pain Home Medications: Atorvastatin [Lipitor] 40 mg PO HS 07/01/18 [History] DULoxetine [Cymbalta] 30 mg PO DAILY 07/01/18 [History] Duloxetine HCl [Cymbalta] 60 mg PO DAILY 07/01/18 [History] Gabapentin [Neurontin] 600 mg PO TID 07/01/18 [History] Losartan Potassium [Cozaar] 50 mg PO DAILY 07/01/18 [History] Meloxicam 15 mg PO DAILY 07/01/18 [History] Oxybutynin Chloride [Ditropan Xl] 5 mg PO DAILY 07/01/18 [History] Trazodone HCl 200 mg PO HS 07/01/18 [History] Docusate [Colace] 100 mg PO BID capsule 07/07/18 [Rx] Folic Acid 1 mg PO DAILY tablet 07/07/18 [Rx] HYDROcodone/Acet 5/325 mg [[place] 5-325 mg] 1 tab PO Q6HR PRN 4 Days #10 tablet 07/07/18 [Rx] Thiamine (B-1) [Vitamin B-1] 100 mg PO DAILY tablet 07/07/18 [Rx] Vitamin B Complex/Vit C/Vit E [Stresstab] 1 each PO DAILY tablet 07/07/18 [Rx] Allergies/Adverse Reactions: Allergy/AdvReac Type Severity Reaction Status Date / Time atenolol Allergy Cough Verified 07/01/18 06:43 Date of admission: 07/03/18 23:48 Primary care physician: KAREN Meredith Consults: 07/05/18 17:33 Consult to Nurse Navigator [CONS] Routine Comment: spine navigator Consult to Occupational Therapy [CONS] Routine Comment: Evaluate, develop and implement POC Reason for Consult: Postoperative rehabilitation Does patient have active BEDREST order?: No Is patient medically & hemodynamically stable?: Yes Patient assessed for mobility or mobilized this visit?: No Consult to Physical Therapy [CONS] Routine Comment: Evaluate, develop and implement POC Reason for Consult: Postoperative rehabilitation Does patient have active BEDREST order?: No Is patient medically & hemodynamically stable?: Yes Patient assessed for mobility or mobilized this visit?: No Anticipated date of discharge: 07/07/18 - Constitutional Vitals: Temp Pulse Resp BP Pulse Ox 98.1 F 69 18 118/67 98 07/07/18 14:50 07/07/18 14:50 07/07/18 14:50 07/07/18 14:50 07/07/18 14:50 General appearance: Present: cooperative, A&O X 3, answers questions appropriately Exam: PHYSICAL EXAMINATION: GENERAL APPEARANCE: The patient is alert, oriented and in no acute distress. HEENT: Head is normocephalic. The sinuses are nontender. Pupils are equal and reactive. The nares are patent. Oropharynx clear without lesions. NECK: Supple without lymphadenopathy. HEART: Regular rate and rhythm. LUNGS: No crackles or wheezes are heard. ABDOMEN: Soft, nontender, nondistended with good bowel sounds heard. Inguinal area is normal. EXTREMITIES: Without cyanosis, clubbing or edema. NEUROLOGICAL: Gross nonfocal. SKIN: Warm and dry without any rash. - Patient Status Disposition: Transfer SNF Functional capacity at discharge: uses cane/walker Overall status at discharge: patient is progressing back to baseline - Discharge Instructions Follow Up With: Stacie Michaud CNP [Primary Care Provider] - Additional Instructions: Call [facility] when you get home to have walker and Bedside Commode delivered. The phone number is #[phone]. Discharge Instructions: Lumbar Please call [facility] ([phone]), your Primary Care Physician, or report to the ER if you have any of the following symptoms: Fever greater that 101.5, increased pain/redness/drainage/odor for your incision site or any other concerning symptoms. ACTIVITY * May Shower * No Tub Baths * No lifting greater than 10 pounds * No Smoking * No Swimming * No off Ground Activities (Running, Climbing, Ladders, Horseback Riding) * No Driving * Wear Back Brace when up walking if lumbar fusion done * Incentive Spirometer 10 times an hour MEDICATIONS: Upon discharge resume your home medications. Take all the medications as prescribed. Take a stool softener if taking narcotic pain medications. Stool softeners are only effective if you drink enough fluids. Drink 6-8 glass of water or fluids a day, unless this is not allowed for another health problem. Despite using stool softeners, if you haven't had a bowel movement in 3 days, please switch to a gentle laxative. Gentle laxatives are sold over the counter. You should have a bowel movement within 24 hours, if not call the office. You will be discharged from the hospital with a prescription for pain medication. You are encouraged to decrease the use of narcotic pain medication as tolerated. Should you require a refill, please call the office. It is best to call 48-72 hours in advance of needing a prescription refill so you don't run out of medication. WOUND CARE: Remove Dressing Tomorrow. Leave incision open to air. Pat dry when you get out of the shower. FOLLOW-UP: Please follow up with your surgeon in the orthopedic clinic in 2 weeks from the day of surgery. References: [employer] (www.apta.org) - Diet and Activity Activity: increase activity as tolerated Diet: advance to your usual diet
--- NOTE | 2018-07-07 15:44 | Physician Discharge Referral ---
ExtendedCare Referral Info Transfer To: [facility] Provider in Charge after Transfer: Other Institutional Level of Care: Skilled - Diagnosis (1) Spinal stenosis Priority: Primary Status: Acute Prognosis: Fair Aware of Diagnosis: Patient Aware of Prognosis: Patient - Transfer Medications Prescriptions: HYDROcodone/Acet 5/325 mg [[place] 5-325 mg] 1 tab PO Q6HR PRN 4 Days #10 tablet PRN Reason: Moderate Pain Home Medications: Atorvastatin [Lipitor] 40 mg PO HS 07/01/18 [History] DULoxetine [Cymbalta] 30 mg PO DAILY 07/01/18 [History] Duloxetine HCl [Cymbalta] 60 mg PO DAILY 07/01/18 [History] Gabapentin [Neurontin] 600 mg PO TID 07/01/18 [History] Losartan Potassium [Cozaar] 50 mg PO DAILY 07/01/18 [History] Meloxicam 15 mg PO DAILY 07/01/18 [History] Oxybutynin Chloride [Ditropan Xl] 5 mg PO DAILY 07/01/18 [History] Trazodone HCl 200 mg PO HS 07/01/18 [History] Docusate [Colace] 100 mg PO BID capsule 07/07/18 [Rx] Folic Acid 1 mg PO DAILY tablet 07/07/18 [Rx] HYDROcodone/Acet 5/325 mg [[place] 5-325 mg] 1 tab PO Q6HR PRN 4 Days #10 tablet 07/07/18 [Rx] Thiamine (B-1) [Vitamin B-1] 100 mg PO DAILY tablet 07/07/18 [Rx] Vitamin B Complex/Vit C/Vit E [Stresstab] 1 each PO DAILY tablet 07/07/18 [Rx] Allergies/Adverse Reactions: Allergy/AdvReac Type Severity Reaction Status Date / Time atenolol Allergy Cough Verified 07/01/18 06:43 - Respiratory Orders Smoking Cessation: Smoking cessation has been advised. For more information, call the [place] Tobacco Quit Line at 8-123-UAOI-NOW. - Ancillary Orders May use pressure relief devices daily prn - Advance Directives Code Status: Full Code - Mobility Orders Other - Rehabiliation Orders Rehab Potential: Fair Rehab Orders: ROM Exercises, Evaluation for Physical Therapy, Evaluation for Occupational Therapy - Diet Orders Regular CERTIFICATION: I certify that the transfer of the above named patient to an Extended Care Facility is necessary for the continuing treatment of the diagnosis listed. The above information is true and accurate reflection of patient's current condition. Confidential - Redisclosure prohibited without a patient's written consent.
--- NOTE | 2018-07-09 18:40 | Electrocardiograph Report ---
[address] [place] [address] Test Date: 2018-07-04 Pat Name: Elly Buchanan Department: 113 Room: [facility] Gender: F [employer] Operative: : 1955 Requested By: German Gonzalez Order Number: [id number] Reading MD: Geovanny Paris Measurements Intervals [place] Rate: 62 P: 39 GA: 147 QRS: 58 QRSD: 94 T: 32 QT: 415 QTc: 421 Interpretive Statements SINUS RHYTHM MODERATE T-WAVE ABNORMALITY, CONSIDER ANTERIOR ISCHEMIA Electronically Signed On 07-09-2018 18:38:36 EDT by Geovanny Paris
== END 2018-07-07 16:12 | DRG 517 ==
LOC: 3BNU → 3NENU 07-05 15:14
PROVIDERS: ADMIT Internal Medicine; ATTEND Internal Medicine